=== PATIENT | female | born 1975 | race Caucasian/White ===

== ENCOUNTER 2019-06-06 00:53 | Inpatient (IN) ==
--- NOTE | 2019-06-06 01:02 | Emergency Department Note ---
Disposition Clinical Impression: Bipolar disorder Qualifiers: Active/Remission status: currently active Current bipolar episode type: mixed Current episode severity: unspecified Qualified Code(s): F31.60 - Bipolar disorder, current episode mixed, unspecified Disposition: Admitted As Inpatient Forms: ED Satisfaction Letter Time of Disposition: 03:36 General Adult HPI - General Chief complaint: ED Psychiatric Symptoms Stated complaint: SI/HI Time Seen by Provider: 06/06/19 01:00 Source: patient Mode of arrival: EMS Limitations: no limitations Nursing Notes Reviewed: Yes Vital Signs Reviewed: Yes - History of Present Illness HPI Narrative: Patient is a 44-year-old female with a past medical history including PTSD, bipolar disorder, Ba[place], presenting with chief complaint of manic episode. Patient states she has not been on any medications since October. Her last meth use was April 21 and since then, she has been in a jail for rehabilitation for drug use. The patient states in last 2-3 days, she feels like her bipolar disorder is acting up. She also states she has been having dreams of her roommate being killed in her PTSD is also acting up. She feels more depressed than usual and feels like she is in a manic stage. She had just returned from urgent care during the day and made a statement that she was going to get a knife and was being aggressive and making aggressive thoughts towards the other residents as they were fighting. The staff at the jail did not feel safe with the patient. The patient would like a psychiatric evaluation and would like to be restarted on medications for her bipolar disorder. The patient denies any visual or auditory hallucinations, recent drug use or alcohol use, denies suicidal or homicidal ideation at this time. The patient was evaluated at [facility] [place] and was medically cleared and transferred here for psychiatric evaluation. - Related Data Home Medications Medication Instructions Recorded Confirmed Docusate [Colace] 100 mg PO BID 06/05/19 06/05/19 Omeprazole [PriLOSEC] 40 mg PO DAILY 06/05/19 06/05/19 Ranitidine HCl [Heartburn Relief] 150 mg PO BID 06/05/19 06/05/19 Sucralfate [Carafate] 1 gm PO QIDAC 06/05/19 06/05/19 metroNIDAZOLE [Flagyl] 500 mg PO BID 06/05/19 06/05/19 Previous Rx's Medication Instructions Recorded Metformin [Glucophage] 1,000 mg PO BIDWM #60 tablet 06/27/15 Trazodone HCl [TraZODone] 100 mg PO HS PRN #60 tablet 12/11/15 Allergies Allergy/AdvReac Type Severity Reaction Status Date / Time No Known Allergies Allergy Verified 06/05/19 19:38 All systems ED: reviewed and negative except as stated. Review of Systems: As Per HPI Constitutional: Denies: fever, chills Eyes: Denies: vision change Cardiovascular: Denies: chest pain, palpitations Respiratory: Denies: cough, dyspnea Gastrointestinal: Denies: abdominal pain, vomiting, diarrhea Neurological: Denies: headache, weakness Psychiatric: Reports: homicidal thoughts. Denies: auditory hallucinations, visual hallucinations Past Medical History - Past Medical History Attestation: Yes The following information was validated with the patient. 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 - Social History Smoking Status: Current every day smoker Smokeless Tobacco Status: No Alcohol use: Reports: occasionally Drug use: Reports: methamphetamine Physical Exam - General Limitations: no limitations General appearance: alert, in no apparent distress - Head Head exam: atraumatic, normocephalic - Eye Eye exam: Present: normal appearance, EOMI - ENT ENT exam: normal exam, mucous membranes moist - Neck Neck exam: Present: normal inspection, trachea midline - Chest Chest inspection: Present: normal inspection, symmetric chest wall rise - Respiratory Respiratory exam: Present: normal lung sounds bilaterally. Absent: respiratory distress, wheezes - Cardiovascular Cardiovascular exam: Present: regular rate, normal rhythm, normal heart sounds - Abdominal Exam Abdominal exam: Present: soft, Non-Tender. Absent: distention - Extremities Exam Extremities exam: Present: normal capillary refill. Absent: pedal edema, calf tenderness - Neurological Exam Neurological exam: Present: alert, oriented X3 - Psychiatric Psychiatric exam: Present: normal affect, normal mood - Skin Skin exam: Present: warm, dry. Absent: diaphoresis, pallor Course Vital Signs Temperature 97.8 F 06/06/19 01:02 Pulse Rate 90 06/06/19 01:02 Respiratory Rate 18 06/06/19 01:02 Blood Pressure 118/80 09/12/19 01:02 O2 Sat by Pulse Oximetry 99 06/06/19 01:02 Temperature 97.8 F 06/06/19 01:02 Pulse Rate 90 06/06/19 01:02 Respiratory Rate 18 06/06/19 01:02 Blood Pressure 118/80 06/06/19 01:02 O2 Sat by Pulse Oximetry 99 06/06/19 01:02 Oxygen Delivery Oxygen Delivery Room Air Medical Decision Making - MDM Narrative Medical decision making narrative: Patient has history of bipolar disorder and has not been on any medications since October. She also has history of meth use and is currently in a jail for rehabilitation. Last use was April 21. Patient states she feels like she is more depressed and is in a manic episode. She would like a psychiatric evaluation and be restarted on medications. Patient had made aggressive thoughts and threatening to take a knife out towards other residents and staff at the jail as well. Patient was evaluated at [facility] [place]. Labs were reviewed. Patient was medically cleared and pink slip was signed and the patient was transferred here for psychiatric evaluation. 1A/psychiatry was called for evaluation. 03:30 Psychiatry evaluated the patient. Since the patient states that she was at urgent care earlier in the day and diagnosed with strep but not started on antibiotics, they are asking for a rapid strep test to be performed prior to the patient going to . She will be admitted for further management to psychiatry. - Medical Records Medical records reviewed: Yes I reviewed the patient's medical records. - Lab Data Lab results reviewed: Yes I reviewed the patient's lab results.
[2019-06-06] MEDS ORDERED: *HR* LORazepam 1 MG TABLET PO ONE (03:01)
[2019-06-06] MEDS ORDERED: Acetaminophen 325 MG TABLET PO PRN (03:52)
[2019-06-06] MEDS ORDERED: Haloperidol Lactate 5 MG/ML VIAL IM PRN (03:52)
[2019-06-06] MEDS ORDERED: Mag Hydrox/Al Hydrox/Simeth 30 ML UDC PO PRN (03:52)
[2019-06-06] MEDS ORDERED: MOM Conc 10 ML UD.LIQ PO PRN (03:52)
[2019-06-06] MEDS ORDERED: *HR* LORazepam 2 MG/ML VIAL IM PRN (03:52)
[2019-06-06] MEDS ORDERED: hydrOXYzine pamoate 25 MG CAPSULE PO PRN (03:52)
[2019-06-06] MEDS ORDERED: *HR* LORazepam 1 MG TABLET PO PRN (03:52)
[2019-06-06] MEDS ORDERED: traZODone 50 MG TABLET PO PRN (03:52)
--- NOTE | 2019-06-06 03:58 | Emergency Department Note ---
Disposition Clinical Impression: Bipolar disorder Qualifiers: Active/Remission status: currently active Current bipolar episode type: mixed Current episode severity: unspecified Qualified Code(s): F31.60 - Bipolar disorder, current episode mixed, unspecified Disposition: Admitted As Inpatient Time of Disposition: 03:36 General Adult HPI - General Chief complaint: ED Psychiatric Symptoms Stated complaint: SI/HI Time Seen by Provider: 06/06/19 01:00 Source: patient Mode of arrival: EMS Limitations: no limitations Nursing Notes Reviewed: Yes Vital Signs Reviewed: Yes - History of Present Illness Pain Scale: 0 - Related Data Home Medications Medication Instructions Recorded Confirmed Docusate [Colace] 100 mg PO BID 06/05/19 06/05/19 Omeprazole [PriLOSEC] 40 mg PO DAILY 06/05/19 06/05/19 Ranitidine HCl [Heartburn Relief] 150 mg PO BID 06/05/19 06/05/19 Sucralfate [Carafate] 1 gm PO QIDAC 06/05/19 06/05/19 metroNIDAZOLE [Flagyl] 500 mg PO BID 06/05/19 06/05/19 Previous Rx's Medication Instructions Recorded Metformin [Glucophage] 1,000 mg PO BIDWM #60 tablet 06/27/15 Trazodone HCl [TraZODone] 100 mg PO HS PRN #60 tablet 12/11/15 Allergies Allergy/AdvReac Type Severity Reaction Status Date / Time No Known Allergies Allergy Verified 06/05/19 19:38 Constitutional: Denies: fever, chills Eyes: Denies: vision change Cardiovascular: Denies: chest pain, palpitations Respiratory: Denies: cough, dyspnea Gastrointestinal: Denies: abdominal pain, vomiting, diarrhea Neurological: Denies: headache, weakness Psychiatric: Reports: homicidal thoughts. 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 - Social History Smoking Status: Current every day smoker Smokeless Tobacco Status: No Alcohol use: Reports: occasionally Drug use: Reports: methamphetamine Physical Exam - General Limitations: no limitations General appearance: alert, in no apparent distress Course Vital Signs Temperature 97.8 F 06/06/19 01:02 Pulse Rate 90 06/06/19 01:02 Respiratory Rate 18 06/06/19 01:02 Blood Pressure 118/80 06/06/19 01:02 O2 Sat by Pulse Oximetry 99 06/06/19 01:02 Temperature 97.8 F 06/06/19 01:02 Pulse Rate 90 06/06/19 01:02 Respiratory Rate 18 06/06/19 01:02 Blood Pressure 118/80 06/06/19 01:02 O2 Sat by Pulse Oximetry 99 06/06/19 01:02 Oxygen Delivery Oxygen Delivery Room Air Medical Decision Making - Medical Records Medical records reviewed: Yes I reviewed the patient's medical records. - Lab Data Lab results reviewed: Yes I reviewed the patient's lab results. Lab Results 06/06/19 Range/Units 02:56 POC Glucose 126 H (70-99) mg/dL Attestation Statement - Attestation Attestation: I, Mario Godoy MD, personally evaluated this patient and discussed their management with the resident physician. I reviewed the resident's note and agree with the documented findings, medical decision making, and plan of care. 44-year-old female who is transferred here from [facility] emergency department for psychiatric consultation. Please refer to the note from [facility] emergency department visit johanny for complete details of the history and physical examination. Patient is apparently in a alf for drug rehabilitation and earlier today made some threatening statements about wrapping a knife with duct tape which could did not be used to stab someone. Patient denies any suicidal ideation at present. On the side of ideation at present but does admit to making statements earlier. She has a history of bipolar disorder and has been off her medications for some time. On examination patient is a well-developed well-nourished female in no acute distress. She is alert and oriented 3. There is no cyanosis or diaphoresis. Breath sounds are clear and equal bilaterally. Heart regular rate and rhythm. Abdomen soft and nontender with normal bowel sounds. No gross focal neurological deficits. Labs reviewed from the outside facility and patient medically cleared for psyc hiatric evaluation. [address] psychiatry department was consulted to evaluate patient in the emergency department. After evaluation patient is being admitted to the [address] psychiatric unit.
[2019-06-06] MEDS: Nicotine 7 MG PATCH.TD24 TD SCH (09:42)
[2019-06-06] MEDS ORDERED: Dextrose Gel 15 GM/37.5 ML TUBE PO PRN ×4 (11:16→23:08)
[2019-06-06] MEDS ORDERED: *HR* Dextrose 50 % in Water (Syg) 50 ML SYRINGE IVP PRN ×2 (11:16→23:08)
[2019-06-06] MEDS ORDERED: D5% in Water 1,000 ML IVC PRN ×2 (11:16→23:08)
--- NOTE | 2019-06-06 11:21 | Psychiatry History & Physical ---
Date of Encounter: 06/06/19 Time of Encounter: 09:30 History of Present Illness Patient Stated Chief Complaint: I recommend I Medicare Admission Attestation: For traditional Medicare patients the provided hospital inpatient services are reasonable and necessary and in the case of services not specified as inpatient-only under 42 CFR 419.22 (n), that they are appropriately provided as inpatient services in accordance 42 CFR 412.3. For Critical Access Hospital the patient may reasonably be expected to be discharged or transferred to a hospital within 96 hours after admission to the Critical Access Hospital. Admitted From: Emergency Dept Plans for Post Hospital Care: Transfer Inp Rehab Fac History of Present Illness: Patient is a 44-year-old female with a past medical history including PTSD, bipolar disorder, [place], presenting with chief complaint of manic episode. Patient states she has not been on any medications since October. Her last meth use was April 21 and since then, she has been in a senior care for rehabilitation for drug use. The patient states in last 2-3 days, she feels like her bipolar disorder is acting up. She also states she has been having dreams of her roommate being killed in her PTSD is also acting up. She feels more depressed than usual and feels like she is in a manic stage. She had just returned from urgent care during the day and made a statement that she was going to get a knife and was being aggressive and making aggressive thoughts towards the other residents as they were fighting. The staff at the senior care did not feel safe with the patient. The patient would like a psychiatric evaluation and would like to be restarted on medications for her bipolar disorder. The patient denies any visual or auditory hallucinations, recent drug use or alcohol use, denies suicidal or homicidal ideation at this time. The patient was evaluated at [facility] and was medically cleared and transferred here for psychiatric evaluation. This morning she continues to have mood lability. She is hyperverbal and expansive. She is impulsive pulses. She reports that she has been feeling manic since she has stopped her psychiatric medications. She reports that she has some paranoia and feels her roommate may kill her and that she needs to protect herself. She denies suicidal ideations. She does have some vague auditory hallucinations telling her to hurt people. She also has nightmares related to her PTSD. Past Med Surg Social Fam HX - Past Medical History Medical history: cancer, COPD, diabetes, GERD, other - Past Psychiatric History Psychiatric history: Reports: bipolar, prior suicide attempt, previous psyc hiatric hospitalization Past psychiatric history details: She reports that she has been in [place] twice most recently in November 2015. She is been linked with [facility] [place]. She was saying Risperdal 1 at bedtime Remeron 15 at bedtime prazosin 1 at bedtime most recently. She has also tried in [place] in the past. She reports a history of suicide attempt by overdose. Family psychiatric history: No Family History of Suicide: None - Past Surgical History Surgical History: cancer surgery, herniorrhaphy, hysterectomy, other - Social History Smoking Status: Current every day smoker Smokeless Tobacco Status: No Alcohol use: occasionally Drug use: methamphetamine Current living situation: Other Activity Level: Independent ambulation Recent Out of Country Travel Within the Last 8 Weeks: No Exposure or Possible Exposure to Illness During Travel: No Additional social history: She is currently staying at the [facility] for substance use. - Family History Father Adopted: No Family Member Ethnicity: Unknown Living Status: Mother Adopted: No Family Member Ethnicity: Unknown Living Status: Brother Living Status: Still Living Hx Family Endocrine Disorder: Yes (DM) Medications & Allergies Azithromycin 250 mg PO AD 06/06/19 [History] Docusate Sodium [Stool Softener] 100 mg PO BID 06/06/19 [History] Lactulose [Enulose] 15 ml PO BID 06/06/19 [History] MethylPREDNISolone [MethylPREDNISolone Dose Pack] 4 mg PO AD 06/06/19 [History] Omeprazole [PriLOSEC] 40 mg PO DAILY 06/06/19 [History] Sucralfate [Carafate] 1 gm PO QID 06/06/19 [History] metFORMIN [Glucophage] 500 mg PO BIDWM 06/06/19 [History] metroNIDAZOLE [Metronidazole] 500 mg PO BID 06/06/19 [History] raNITIdine HCl [Zantac] 150 mg PO BID 06/06/19 [History] traZODone [TraZODone] 100 mg PO HS 06/06/19 [History] Allergy/AdvReac Type Severity Reaction Status Date / Time No Known Allergies Allergy Verified 06/05/19 19:38 Review of Systems Constitutional: Reports: weakness Eyes: Denies: eye pain Ears, Nose, Throat: Denies: ear pain Cardiovascular: Denies: chest pain Respiratory: Denies: cough Gastrointestinal: Denies: abdominal pain Genitourinary female: Reports: dysuria, discharge Musculoskeletal: Reports: joint swelling, joint pain Integumentary: Denies: rash Neurological: Reports: weakness Psychiatric: Reports: anxiety, homicidal ideation, auditory hallucinations, hopelessness, irritability, mood swings Endocrine: Reports: fatigue Hematologic/Lymphatic: Denies: easy bleeding Allergic/Immunologic: Denies: facial swelling Exam - HEENT Head exam IM: Present: atraumatic Eye exam IM: Present: EOMI ENT exam IM: Present: mucous membranes moist - Neurological Neurological exam: Present: CN II-XII intact (Grossly) - Respiratory Respiratory exam IM: Absent: respiratory distress - GI/Abdominal GI/Abdominal exam IM: Present: no peritoneal signs - Extremities Extremities exam IM: Present: full ROM - Skin Skin exam IM: Absent: abrasion - Constitutional Vitals: Temp Pulse Resp BP Pulse Ox 97.2 F L 96 18 110/66 98 06/06/19 04:15 06/06/19 04:15 06/06/19 04:15 06/06/19 04:06/06/19 04:15 General appearance: age & developmentally appropriate - Musculoskeletal Gait: normal Station: stooped Strength & Tone: mild weakness - Psychiatric Patient Orientation: Yes Person, Yes Time, Yes Place, Yes Circumstance Level of alertness: Alert Behavior: impulsive, talkative, dramatic Psychomotor activity: Increased Eye Contact: Maintains Eye Contact Mood Description: Labile, Irritable Patient description of mood: Terrible Affect description: labile Speech Volume: Loud Speech pattern: excessive Language & Vocabulary: consistent with education Thought Process: Tangential Thought Content: No Suicidal ideation, Yes Homicidal ideation, Yes Paranoid delusion Perceptual Disturbances: Yes Auditory hallucinations Attention Span Ability: Capable of Focused Attention Memory Description: Grossly Intact Patient Reliability: Reliable Historian Fund of knowledge: Yes abstraction ability, Yes average, Yes aware of current events Intelligence Estimate: Average Judgment: Poor Insight: None Results - Labs Labs: Laboratory Last Values POC Glucose 126 mg/dL (70-99) H 06/06/19 02:56 Assessment and Plan (1) Bipolar disorder Current visit: Yes Status: Acute Plan: Admit inpatient for safety and stabilization, Close observation, Suicide Precautions per unit protocol, Encourage participation in unit milieu, Group Therapy, Monitor sleep, Monitor appetite Additional Plan: Restart Remeron 7.5 at bedtime prazosin 1 at bedtime Risperdal 1 at bedtime encourage group attendance [place] equals 0 Risks, benefits, side effects, alternatives discussed w/pt: Yes Patient agreeable to treatment: Yes Plans for Post Hospital Care: Transfer Inp Rehab Fac Estimated Length of Stay (Days): 3 Qualifiers: Active/Remission status: currently active Current bipolar episode type: mixed Current episode severity: severe Psychotic features: with psychotic features Qualified Code(s): F31.64 - Bipolar disorder, current episode mixed, severe, with psychotic features
[2019-06-06 13:00] LABS: Chol/HDL Ratio 2.7 (0-4.9)
[2019-06-06] MEDS: Azithromycin 250 MG TABLET PO SCH (13:00)
[2019-06-06] MEDS: metroNIDAZOLE 500 MG TABLET PO SCH ×2 (13:00→20:55)
[2019-06-06] MEDS: Sucralfate 1 GM TABLET PO SCH ×3 (13:00→20:56)
[2019-06-06] MEDS: Insulin LISPRO 300 UNITS/3 ML VIAL SQ SCH ×2 (13:11→18:04)
[2019-06-06] MEDS: Lactulose Oral Soln 20 GM/30 ML UDC PO SCH ×2 (13:53→20:57)
[2019-06-06] MEDS: methylPREDNISolone 4 MG TABLET PO SCH ×3 (13:53→21:13)
[2019-06-06 14:24] LABS: Estimated Average Glucose 157 mg/dl
[2019-06-06] MEDS: *HR* Metformin 500 MG TABLET PO SCH (16:58)
[2019-06-06] MEDS: Mirtazapine 15 MG TABLET PO SCH (20:56)
[2019-06-06] MEDS: traZODone 50 MG TABLET PO SCH (20:57)
[2019-06-06] MEDS ORDERED: risperiDONE 1 MG TABLET PO SCH (21:00)
[2019-06-07] MEDS: Insulin LISPRO 300 UNITS/3 ML VIAL SQ SCH ×5 (00:20→21:00)
[2019-06-07] MEDS: Famotidine 20 MG TABLET PO SCH (09:12)
[2019-06-07] MEDS: *HR* Metformin 500 MG TABLET PO SCH ×2 (09:12→16:49)
[2019-06-07] MEDS: metroNIDAZOLE 500 MG TABLET PO SCH ×2 (09:12→20:58)
[2019-06-07] MEDS: Nicotine 7 MG PATCH.TD24 TD SCH (09:13)
[2019-06-07] MEDS: Lactulose Oral Soln 20 GM/30 ML UDC PO SCH ×2 (09:13→20:58)
[2019-06-07] MEDS: Sucralfate 1 GM TABLET PO SCH ×4 (09:13→20:58)
[2019-06-07] MEDS: methylPREDNISolone 4 MG TABLET PO SCH ×4 (09:44→21:58)
--- NOTE | 2019-06-07 11:03 | Psychiatry Progress Note ---
Date of Encounter: 06/07/19 Time of Encounter: 10:55 Subjective Interval history: Patient continues to report depression with sad mood decreased interest and hopelessness. She still has some auditory hallucinations telling her to hurt people. She is tolerating being back on the medications but feels that the Invega was not as helpful Seroquel has been for her in the past. She still woke up several times as well as night. She has not been eating and has been secluded to her room. She appears somewhat paranoid. Review of Systems Psychiatric: Reports: anxiety, homicidal ideation, auditory hallucinations, hopelessness, irritability, mood swings Results - Vital Signs Vital Signs: Temp Pulse Resp BP Pulse Ox 97.6 F 94 16 103/69 97 06/07/19 09:00 06/07/19 09:00 06/07/19 09:00 06/07/19 09:00 06/07/19 09:00 - Labs Labs: Laboratory Results - last 24 hr 06/06/19 06/06/19 06/06/19 11:14 11:14 11:15 POC Glucose Est Mean Plasma Glucose 157 Hemoglobin A1c 7.1 H AST ALT Ammonia Triglycerides Cholesterol LDL Cholesterol, Calc VLDL Cholesterol, Calc HDL Cholesterol Cholesterol/HDL Ratio TSH 1.428 T.pallidum Ab Interpret POSITIVE A 06/06/19 06/06/19 06/06/19 11:15 12:19 12:27 POC Glucose 334 H Est Mean Plasma Glucose Hemoglobin A1c AST 44 H ALT 70 H Ammonia 38 Triglycerides 83 Cholesterol 135 LDL Cholesterol, Calc 68 VLDL Cholesterol, Calc 17 HDL Cholesterol 50 Cholesterol/HDL Ratio 2.7 TSH T.pallidum Ab Interpret 06/06/19 06/06/19 06/07/19 15:07 19:55 00:10 POC Glucose 78 365 H 431 H* Est Mean Plasma Glucose Hemoglobin A1c AST ALT Ammonia Triglycerides Cholesterol LDL Cholesterol, Calc VLDL Cholesterol, Calc HDL Cholesterol Cholesterol/HDL Ratio TSH T.pallidum Ab Interpret 06/07/19 06/07/19 00:11 08:11 POC Glucose 452 H* 311 H Est Mean Plasma Glucose Hemoglobin A1c AST ALT Ammonia Triglycerides Cholesterol LDL Cholesterol, Calc VLDL Cholesterol, Calc HDL Cholesterol Cholesterol/HDL Ratio TSH T.pallidum Ab Interpret Assessment and Plan (1) Bipolar disorder Current visit: Yes Status: Acute Plan: Continue hospitalization, Close observation, Suicide Precautions per unit protocol, Encourage participation in unit milieu, Group Therapy, Monitor sleep, Monitor appetite Additional Plan: Switch in [place] for Seroquel 200 mg by mouth daily at bedtime. Continue prazosin and Remeron. Encourage group attendance. She will go back to [facility] once she is stable. Risks, benefits, side effects, alternatives discussed w/pt: Yes Patient agreeable to treatment: Yes Qualifiers: Active/Remission status: currently active Current bipolar episode type: mixed Current episode severity: severe Psychotic features: with psychotic features Qualified Code(s): F31.64 - Bipolar disorder, current episode mixed, severe, with psychotic features Consult Discharge Plan - Plan Referrals: [facility] [Other] (Upon discharge from the hospital you will be returning to [facility] for continued treatment. While there, you will be seen daily by [facility] counselors and case coordinator, both individually and in group. Please work with [facility] staff to develop a treatment plan based on your individual needs and goals. ) Psychiatry Exam - Constitutional Vitals: Temp Pulse Resp BP Pulse Ox 97.6 F 94 16 103/69 97 06/07/19 09:00 06/07/19 09:00 06/07/19 09:00 06/07/19 09:00 06/07/19 09:00 General appearance: age & developmentally appropriate, disheveled - Musculoskeletal Gait: slow Station: stooped Strength & Tone: mild weakness - Psychiatric Patient Orientation: Yes Person, Yes Time, Yes Place, Yes Circumstance Level of alertness: Alert Behavior: hostile Psychomotor activity: Agitated Eye Contact: Minimal Contact Mood Description: Angry, Irritable Patient description of mood: Mad Affect description: congruent with mood Speech Volume: Loud Speech pattern: normal rate, normal rhythm, normal tone, fluent, spontaneous Language & Vocabulary: consistent with education Thought Process: Perseveration Thought Content: Yes Homicidal ideation, Yes Paranoid delusion Perceptual Disturbances: Yes Auditory hallucinations Attention Span Ability: Capable of Focused Attention Memory Description: Grossly Intact Patient Reliability: Reliable Historian Fund of knowledge: Yes abstraction ability, Yes aware of current events Intelligence Estimate: Average Judgment: Poor Insight: None
[2019-06-07] MEDS: Azithromycin 250 MG TABLET PO SCH (11:10)
[2019-06-07] MEDS: Mirtazapine 15 MG TABLET PO SCH (20:58)
[2019-06-07] MEDS: traZODone 50 MG TABLET PO SCH (20:59)
--- NOTE | 2019-06-08 09:36 | Psychiatry Progress Note ---
Date of Encounter: 06/08/19 Time of Encounter: 08:50 Subjective Interval history: Patient is doing well. She slept better with the Seroquel. No suicidal or homicidal thoughts, ideations, or plans. She continues to have some mild paranoia and worries that people are talking about her wanting to hurt her. She is withdrawn and does not spend much time out of her room. Review of Systems Psychiatric: Reports: anxiety, hopelessness, irritability, mood swings, other (Paranoia) Results - Vital Signs Vital Signs: Temp Pulse Resp BP Pulse Ox 97.7 F 111 14 91/59 98 06/08/19 09:00 06/08/19 09:00 06/08/19 09:00 06/08/19 09:00 06/08/19 09:00 - Labs Labs: Laboratory Results - last 24 hr 06/07/19 06/07/19 06/07/19 11:12 11:13 14:31 POC Glucose 423 H* 407 H* 190 H 06/07/19 06/07/19 06/08/19 16:17 20:57 09:05 POC Glucose 247 H 376 H 338 H Assessment and Plan (1) Bipolar disorder Current visit: Yes Status: Acute Plan: Continue hospitalization, Close observation, Suicide Precautions per unit protocol, Encourage participation in unit milieu, Group Therapy, Monitor sleep, Monitor appetite Additional Plan: Continue current medication. Encourage group therapy. Will likely return to [facility] on Monday. Risks, benefits, side effects, alternatives discussed w/pt: Yes Patient agreeable to treatment: Yes Qualifiers: Active/Remission status: currently active Current bipolar episode type: mixed Current episode severity: severe Psychotic features: with psychotic features Qualified Code(s): F31.64 - Bipolar disorder, current episode mixed, severe, with psychotic features Consult Discharge Plan - Plan Referrals: [facility] [Other] (Upon discharge from the hospital you will be returning to [facility] for continued treatment. While there, you will be seen daily by [facility] counselors and rifle case repairer, both individually and in group. Please work with [facility] staff to develop a treatment plan based on your individual needs and goals. ) Psychiatry Exam - Constitutional Vitals: Temp Pulse Resp BP Pulse Ox 97.7 F 111 14 91/59 98 06/08/19 09:00 06/08/19 09:00 06/08/19 09:00 06/08/19 09:00 06/08/19 09:00 General appearance: age & developmentally appropriate - Musculoskeletal Gait: slow Station: stooped Strength & Tone: mild weakness - Psychiatric Patient Orientation: Yes Person, Yes Time, Yes Place, Yes Circumstance Level of alertness: Alert Behavior: anxious Psychomotor activity: Slowed Eye Contact: Minimal Contact Mood Description: Anxious Patient description of mood: A little better Affect description: anxious Speech Volume: Normal Speech pattern: normal rate Language & Vocabulary: consistent with education Thought Process: Linear, Goal Oriented Thought Content: Yes Intact, No Suicidal ideation, No Homicidal ideation, Yes Paranoid delusion Perceptual Disturbances: No Auditory hallucinations, No Visual hallucinations Attention Span Ability: Capable of Focused Attention Memory Description: Grossly Intact Patient Reliability: Reliable Historian Fund of knowledge: Yes abstraction ability, Yes aware of current events Intelligence Estimate: Average Judgment: Fair Insight: Partial
[2019-06-08] MEDS: Nicotine 7 MG PATCH.TD24 TD SCH (09:45)
[2019-06-08] MEDS: Sucralfate 1 GM TABLET PO SCH ×4 (09:46→20:56)
[2019-06-08] MEDS: methylPREDNISolone 4 MG TABLET PO SCH ×3 (09:46→22:26)
[2019-06-08] MEDS: Famotidine 20 MG TABLET PO SCH (09:46)
[2019-06-08] MEDS: *HR* Metformin 500 MG TABLET PO SCH ×2 (09:46→17:51)
[2019-06-08] MEDS: metroNIDAZOLE 500 MG TABLET PO SCH ×2 (09:47→20:55)
[2019-06-08] MEDS: Insulin LISPRO 300 UNITS/3 ML VIAL SQ SCH ×4 (09:48→22:23)
[2019-06-08] MEDS: Lactulose Oral Soln 20 GM/30 ML UDC PO SCH ×2 (09:50→20:56)
[2019-06-08 10:43] LABS: RPR REACTIVE (Non Reactive)
[2019-06-08] MEDS: Azithromycin 250 MG TABLET PO SCH (12:30)
[2019-06-08] MEDS: traZODone 50 MG TABLET PO SCH (20:55)
[2019-06-08] MEDS: Mirtazapine 15 MG TABLET PO SCH (20:56)
[2019-06-09] MEDS: Famotidine 20 MG TABLET PO SCH (08:54)
[2019-06-09] MEDS: Nicotine 7 MG PATCH.TD24 TD SCH (08:54)
[2019-06-09] MEDS: *HR* Metformin 500 MG TABLET PO SCH ×2 (08:54→16:15)
[2019-06-09] MEDS: metroNIDAZOLE 500 MG TABLET PO SCH ×2 (08:54→21:01)
[2019-06-09] MEDS: Sucralfate 1 GM TABLET PO SCH ×4 (08:54→21:00)
[2019-06-09] MEDS: Insulin LISPRO 300 UNITS/3 ML VIAL SQ SCH ×4 (08:55→21:03)
[2019-06-09] MEDS: Lactulose Oral Soln 20 GM/30 ML UDC PO SCH ×2 (08:59→21:02)
[2019-06-09] MEDS: methylPREDNISolone 4 MG TABLET PO SCH (08:59)
--- NOTE | 2019-06-09 09:32 | Psychiatry Progress Note ---
Date of Encounter: 06/09/19 Time of Encounter: 08:50 Subjective Interval history: Patient denies any suicidal or homicidal thoughts, ideations, or plans. She does report that she still has some mild paranoia and a little bit of difficulty sleeping. She was agreeable to increasing her Seroquel. She spends most of the time in her room but does attend the occasional group and comes out for meals. She is hopeful and looking forward to getting back to [facility]. Review of Systems Psychiatric: Reports: other (Paranoia) Results - Vital Signs Vital Signs: Temp Pulse Resp BP Pulse Ox 97.4 F L 91 14 100/67 98 06/09/19 09:00 06/09/19 09:00 06/09/19 09:00 06/09/19 09:00 06/09/19 09:00 - Labs Labs: Laboratory Results - last 24 hr 06/06/19 06/08/19 06/08/19 11:14 12:11 16:49 POC Glucose 235 H 335 H RPR Titer 1:2 A RPR REACTIVE A 06/08/19 06/09/19 20:37 08:41 POC Glucose 237 H 201 H RPR Titer RPR Assessment and Plan (1) Bipolar disorder Current visit: Yes Status: Acute Plan: Continue hospitalization, Close observation, Suicide Precautions per unit protocol, Encourage participation in unit milieu, Group Therapy, Monitor sleep, Monitor appetite Additional Plan: Increase Seroquel to 300 mg by mouth daily at bedtime for paranoia and to further address insomnia. Encourage group attendance. Lately little and off tomorrow. Risks, benefits, side effects, alternatives discussed w/pt: Yes Patient agreeable to treatment: Yes Qualifiers: Active/Remission status: currently active Current bipolar episode type: mixed Current episode severity: severe Psychotic features: with psychotic features Qualified Code(s): F31.64 - Bipolar disorder, current episode mixed, severe, with psychotic features Consult Discharge Plan - Plan Referrals: [facility] [Other] (Upon discharge from the hospital you will be returning to [facility] for continued treatment. While there, you will be seen daily by [facility] counselors and manager rn case, both individually and in group. Please work with [facility] staff to develop a treatment plan based on your individual needs and goals. ) Psychiatry Exam - Constitutional Vitals: Temp Pulse Resp BP Pulse Ox 97.4 F L 91 14 100/67 98 06/09/19 09:00 06/09/19 09:00 06/09/19 09:00 06/09/19 09:00 06/09/19 09:00 General appearance: age & developmentally appropriate, well-groomed, well- nourished - Musculoskeletal Gait: normal Station: relaxed Strength & Tone: normal for patient - Psychiatric Patient Orientation: Yes Person, Yes Time, Yes Place, Yes Circumstance Level of alertness: Alert Behavior: calm, cooperative Psychomotor activity: Normal Eye Contact: Maintains Eye Contact Mood Description: Euthymic/stable Patient description of mood: Better Affect description: congruent with mood, full range Speech Volume: Normal Speech pattern: normal rate, normal rhythm, normal tone, fluent, spontaneous Language & Vocabulary: consistent with education Thought Process: Linear, Goal Oriented Thought Content: No Suicidal ideation, No Homicidal ideation, No Overt delusions, Yes Paranoid delusion Perceptual Disturbances: No Auditory hallucinations, No Visual hallucinations Attention Span Ability: Capable of Focused Attention Memory Description: Grossly Intact Patient Reliability: Reliable Historian Fund of knowledge: Yes abstraction ability, Yes aware of current events Intelligence Estimate: Average Judgment: Fair Insight: Partial
[2019-06-09] MEDS: Azithromycin 250 MG TABLET PO SCH (11:41)
[2019-06-09] MEDS: Mirtazapine 15 MG TABLET PO SCH (21:01)
[2019-06-10] MEDS: methylPREDNISolone 4 MG TABLET PO SCH ×2 (05:33→07:08)
[2019-06-10] MEDS: Lactulose Oral Soln 20 GM/30 ML UDC PO SCH (08:13)
[2019-06-10] MEDS: Famotidine 20 MG TABLET PO SCH (08:14)
[2019-06-10] MEDS: Sucralfate 1 GM TABLET PO SCH (08:14)
[2019-06-10] MEDS: *HR* Metformin 500 MG TABLET PO SCH (08:15)
[2019-06-10] MEDS: metroNIDAZOLE 500 MG TABLET PO SCH (08:15)
[2019-06-10] MEDS: Insulin LISPRO 300 UNITS/3 ML VIAL SQ SCH (08:19)
[2019-06-10] MEDS: Nicotine 7 MG PATCH.TD24 TD SCH (08:22)
--- NOTE | 2019-06-10 09:50 | Discharge Summary ---
Date of Encounter: 06/10/19 Time of Encounter: 08:00 Diagnosis - Discharge Diagnosis (1) Bipolar disorder Status: Acute Qualifiers: Active/Remission status: currently active Current bipolar episode type: mixed Current episode severity: severe Psychotic features: with psychotic features Qualified Code(s): F31.64 - Bipolar disorder, current episode mixed, severe, with psychotic features Medications - Discharge Medications Prescriptions: Sucralfate [Carafate] 1 gm PO QID 15 Days tab Prescription Printed Lactulose [Enulose] 15 ml PO BID 15 Days Prescription Printed metFORMIN [Glucophage] 500 mg PO BIDWM #30 tab Transmission Status: Pending to [facility] Insulin LISPRO [HumaLOG] 0 units SQ HS 15 Days vial Prescription Printed Insulin LISPRO [HumaLOG] 0 units SQ TIDAC 15 Days vial Prescription Printed MethylPREDNISolone [MethylPREDNISolone Dose Pack] 4 mg PO AD #2 Prescription Printed Prazosin [Minipress] 1 mg PO HS #15 capsule Transmission Status: Pending to [facility] Omeprazole [PriLOSEC] 40 mg PO DAILY #15 Prescription Printed Mirtazapine [Remeron] 7.5 mg PO HS #15 tablet Transmission Status: Pending to [facility] Quetiapine Fumarate [Seroquel] 300 mg PO HS #15 tablet Transmission [facility]: [facility] Docusate Sodium [Stool Softener] 100 mg PO BID #30 traZODone [TraZODone] 100 mg PO HS #15 tab Transmission Status: Pending to [facility] . hydrOXYzine pamoate [Vistaril] 25 mg PO TID PRN #45 capsule PRN Reason: Anxiety Transmission Status: Pending to [facility] raNITIdine HCl [Zantac] 150 mg PO BID #15 tab Transmission Status: Pending to [facility]. Docusate Sodium [Stool Softener] 100 mg PO BID #30 06/10/19 [Rx] Insulin LISPRO [HumaLOG] 0 units SQ HS 15 Days vial 06/10/19 [Rx] Insulin LISPRO [HumaLOG] 0 units SQ TIDAC 15 Days vial 06/10/19 [Rx] Lactulose [Enulose] 15 ml PO BID 15 Days 06/10/19 [Rx] MethylPREDNISolone [MethylPREDNISolone Dose Pack] 4 mg PO AD #2 06/10/19 [Rx] Mirtazapine [Remeron] 7.5 mg PO HS #15 tablet 06/10/19 [Rx] Omeprazole [PriLOSEC] 40 mg PO DAILY #15 06/10/19 [Rx] Prazosin [Minipress] 1 mg PO HS #15 capsule 06/10/19 [Rx] Quetiapine Fumarate [Seroquel] 300 mg PO HS #15 tablet 06/10/19 [Rx] Sucralfate [Carafate] 1 gm PO QID 15 Days tab 06/10/19 [Rx] hydrOXYzine pamoate [Vistaril] 25 mg PO TID PRN #45 capsule 06/10/19 [Rx] metFORMIN [Glucophage] 500 mg PO BIDWM #30 tab 06/10/19 [Rx] raNITIdine HCl [Zantac] 150 mg PO BID #15 tab 06/10/19 [Rx] traZODone [TraZODone] 100 mg PO HS #15 tab 06/10/19 [Rx] Allergy/AdvReac Type Severity Reaction Status Date / Time No Known Allergies Allergy Verified 06/05/19 19:38 Results Procedures and tests throughout hospitalization: Completed Lab Orders Category Date Time Status Alanine Aminotransferase Routine Lab 06/06/19 11:15 Completed Ammonia Routine Lab 06/06/19 12:27 Completed Aspartate Amino Transferase Routine Lab 06/06/19 11:15 Completed Hgb A1C Routine Lab 06/06/19 11:15 Completed Lipid Panel Routine Lab 06/06/19 11:15 Completed Thyroid Stimulating Hormone Routine Lab 06/06/19 11:14 Completed Treponema Pallidum Ab Routine Lab 06/06/19 11:14 Completed Completed Microbiology Orders Category Date Time Status Streptococcus A Rapid Test [RM] Stat Lab 06/06/19 03:35 Completed Labs from last 24 hours 06/10/19 06/09/19 06/09/19 08:13 20:34 16:13 POC Glucose 195 H 362 H 129 H 06/09/19 06/09/19 14:50 11:19 POC Glucose 105 H 374 H Lab Results 06/06/19 06/06/19 06/06/19 Range/Units 02:56 11:14 11:14 POC Glucose 126 H (70-99) mg/dL Est Mean Plasma Glucose mg/dl Hemoglobin A1c ( - 5.6) % AST (13-39) Units/L ALT (7-52) Units/L Ammonia (16-53) mcmol/L Triglycerides (< 150) mg/dL Cholesterol (< 200) mg/dL LDL Cholesterol, Calc (0-99) mg/dL VLDL Cholesterol, Calc (< 31) mg/dL HDL Cholesterol (40-59) mg/dL Cholesterol/HDL Ratio (0-4.9) TSH 1.428 (0.340-5.600) mcIU/mL RPR Titer RPR (Non Reactive) T.pallidum Ab Interpret POSITIVE A (NEGATIVE) 06/06/19 06/06/19 06/06/19 Range/Units 11:14 11:15 11:15 POC Glucose (70-99) mg/dL Est Mean Plasma Glucose 157 mg/dl Hemoglobin A1c 7.1 H ( - 5.6) % AST 44 H (13-39) Units/L ALT 70 H (7-52) Units/L Ammonia (16-53) mcmol/L Triglycerides 83 (< 150) mg/dL Cholesterol 135 (< 200) mg/dL LDL Cholesterol, Calc 68 (0-99) mg/dL VLDL Cholesterol, Calc 17 (< 31) mg/dL HDL Cholesterol 50 (40-59) mg/dL Cholesterol/HDL Ratio 2.7 (0-4.9) TSH (0.340-5.600) mcIU/mL RPR Titer 1:2 A RPR REACTIVE A (Non Reactive) T.pallidum Ab Interpret (NEGATIVE) 06/06/19 06/06/19 06/06/19 Range/Units 12:19 12:27 15:07 POC Glucose 334 H 78 (70-99) mg/dL Est Mean Plasma Glucose mg/dl Hemoglobin A1c ( - 5.6) % AST (13-39) Units/L ALT (7-52) Units/L Ammonia 38 (16-53) mcmol/L Triglycerides (< 150) mg/dL Cholesterol (< 200) mg/dL LDL Cholesterol, Calc (0-99) mg/dL VLDL Cholesterol, Calc (< 31) mg/dL HDL Cholesterol (40-59) mg/dL Cholesterol/HDL Ratio (0-4.9) TSH (0.340-5.600) mcIU/mL RPR Titer RPR (Non Reactive) T.pallidum Ab Interpret (NEGATIVE) 06/06/19 06/07/19 06/07/19 Range/Units 19:55 00:10 00:11 POC Glucose 365 H 431 H* 452 H* (70-99) mg/dL Est Mean Plasma Glucose mg/dl Hemoglobin A1c ( - 5.6) % AST (13-39) Units/L ALT (7-52) Units/L Ammonia (16-53) mcmol/L Triglycerides (< 150) mg/dL Cholesterol (< 200) mg/dL LDL Cholesterol, Calc (0-99) mg/dL VLDL Cholesterol, Calc (< 31) mg/dL HDL Cholesterol (40-59) mg/dL Cholesterol/HDL Ratio (0-4.9) TSH (0.340-5.600) mcIU/mL RPR Titer RPR (Non Reactive) T.pallidum Ab Interpret (NEGATIVE) 06/07/19 06/07/19 06/07/19 Range/Units 08:11 11:12 11:13 POC Glucose 311 H 423 H* 407 H* (70-99) mg/dL Est Mean Plasma Glucose mg/dl Hemoglobin A1c ( - 5.6) % AST (13-39) Units/L ALT (7-52) Units/L Ammonia (16-53) mcmol/L Triglycerides (< 150) mg/dL Cholesterol (< 200) mg/dL LDL Cholesterol, Calc (0-99) mg/dL VLDL Cholesterol, Calc (< 31) mg/dL HDL Cholesterol (40-59) mg/dL Cholesterol/HDL Ratio (0-4.9) TSH (0.340-5.600) mcIU/mL RPR Titer RPR (Non Reactive) T.pallidum Ab Interpret (NEGATIVE) 06/07/19 06/07/19 06/07/19 Range/Units 14:31 16:17 20:57 POC Glucose 190 H 247 H 376 H (70-99) mg/dL Est Mean Plasma Glucose mg/dl Hemoglobin A1c ( - 5.6) % AST (13-39) Units/L ALT (7-52) Units/L Ammonia (16-53) mcmol/L Triglycerides (< 150) mg/dL Cholesterol (< 200) mg/dL LDL Cholesterol, Calc (0-99) mg/dL VLDL Cholesterol, Calc (< 31) mg/dL HDL Cholesterol (40-59) mg/dL Cholesterol/HDL Ratio (0-4.9) TSH (0.340-5.600) mcIU/mL RPR Titer RPR (Non Reactive) T.pallidum Ab Interpret (NEGATIVE) 06/08/19 06/08/19 06/08/19 Range/Units 09:05 12:11 16:49 POC Glucose 338 H 235 H 335 H (70-99) mg/dL Est Mean Plasma Glucose mg/dl Hemoglobin A1c ( - 5.6) % AST (13-39) Units/L ALT (7-52) Units/L Ammonia (16-53) mcmol/L Triglycerides (< 150) mg/dL Cholesterol (< 200) mg/dL LDL Cholesterol, Calc (0-99) mg/dL VLDL Cholesterol, Calc (< 31) mg/dL HDL Cholesterol (40-59) mg/dL Cholesterol/HDL Ratio (0-4.9) TSH (0.340-5.600) mcIU/mL RPR Titer RPR (Non Reactive) T.pallidum Ab Interpret (NEGATIVE) 06/08/19 06/09/19 06/09/19 Range/Units 20:37 08:41 11:19 POC Glucose 237 H 201 H 374 H (70-99) mg/dL Est Mean Plasma Glucose mg/dl Hemoglobin A1c ( - 5.6) % AST (13-39) Units/L ALT (7-52) Units/L Ammonia (16-53) mcmol/L Triglycerides (< 150) mg/dL Cholesterol (< 200) mg/dL LDL Cholesterol, Calc (0-99) mg/dL VLDL Cholesterol, Calc (< 31) mg/dL HDL Cholesterol (40-59) mg/dL Cholesterol/HDL Ratio (0-4.9) TSH (0.340-5.600) mcIU/mL RPR Titer RPR (Non Reactive) T.pallidum Ab Interpret (NEGATIVE) 06/09/19 06/09/19 06/09/19 Range/Units 14:50 16:13 20:34 POC Glucose 105 H 129 H 362 H (70-99) mg/dL Est Mean Plasma Glucose mg/dl Hemoglobin A1c ( - 5.6) % AST (13-39) Units/L ALT (7-52) Units/L Ammonia (16-53) mcmol/L Triglycerides (< 150) mg/dL Cholesterol (< 200) mg/dL LDL Cholesterol, Calc (0-99) mg/dL VLDL Cholesterol, Calc (< 31) mg/dL HDL Cholesterol (40-59) mg/dL Cholesterol/HDL Ratio (0-4.9) TSH (0.340-5.600) mcIU/mL RPR Titer RPR (Non Reactive) T.pallidum Ab Interpret (NEGATIVE) 06/10/19 Range/Units 08:13 POC Glucose 195 H (70-99) mg/dL Est Mean Plasma Glucose mg/dl Hemoglobin A1c ( - 5.6) % AST (13-39) Units/L ALT (7-52) Units/L Ammonia (16-53) mcmol/L Triglycerides (< 150) mg/dL Cholesterol (< 200) mg/dL LDL Cholesterol, Calc (0-99) mg/dL VLDL Cholesterol, Calc (< 31) mg/dL HDL Cholesterol (40-59) mg/dL Cholesterol/HDL Ratio (0-4.9) TSH (0.340-5.600) mcIU/mL RPR Titer RPR (Non Reactive) T.pallidum Ab Interpret (NEGATIVE) Provider Date of admission: 06/06/19 03:49 Primary care physician: PCP NONE Consults: 06/06/19 04:59 Consult to Pastoral Services [CONS] Routine Comment: Discharging clinician: Luciana Holley Psychiatry Exam - Constitutional Vitals: Temp Pulse Resp BP Pulse Ox 98.0 F 86 16 112/57 100 06/09/19 21:00 06/09/19 21:00 06/09/19 21:00 06/09/19 21:00 06/09/19 21:00 General appearance: age & developmentally appropriate, well-groomed, well- nourished - Musculoskeletal Gait: normal Station: relaxed Strength & Tone: normal for patient - Psychiatric Patient Orientation: Yes Person, Yes Time, Yes Place, Yes Circumstance Level of alertness: Alert Behavior: calm, cooperative Psychomotor activity: Normal Eye Contact: Maintains Eye Contact Mood Description: Euthymic/stable Patient description of mood: Good Affect description: congruent with mood, full range Speech Volume: Normal Speech pattern: normal rate, normal rhythm, normal tone, fluent, spontaneous Language & Vocabulary: consistent with education Thought Process: Linear, Goal Oriented Thought Content: No Suicidal ideation, No Homicidal ideation, No Overt delusions Perceptual Disturbances: No Auditory hallucinations, No Visual hallucinations Attention Span Ability: Capable of Focused Attention Memory Description: Grossly Intact Patient Reliability: Reliable Historian Fund of knowledge: Yes abstraction ability, Yes aware of current events Intelligence Estimate: Average Judgment: Good Insight: Full Hospital Course Hospital course: Ms. Clarke is a 44 year old female who was admitted for homicidal ideations and paranoia. She was restarted on her Remeron and Seroquel was started to address the paranoia. She had as needed Vistaril and trazodone available for anxiety and insomnia.Patient was educated of diagnosis and the risk-benefit side effects of this alternative treatment options and was monitored for responsiveness and side effects. Mood anxiety sleep and appetite interest improved as did future orientation. Self-harm thoughts subsided, thinking cleared, psychosis resolved, and mood stabilized. Patient was able to attend both individual and group therapy sessions as well as meet with the psychiatrist daily and urged to di scuss any medication or treatment issues or other concerns. The patient was educated primarily by verbal means about their diagnosis and manifestations in their life. The option for treatment including group and individual therapy programming was offered to the patient in addition to the use of medications with all their potential risks, benefits, and side effects as well as the risks of not taking medication and non-adhereance were discussed with the patient at length. The patient was given the opportunity to ask questions and was noted to participate in the treatment in the planning process. The patient felt ready and eager to be discharged from the inpatient psychiatric unit to continue on with treatment as an outpatient. The patient agreed that is they were safe for this disposition. The patient was considered to be able to participate in informed consent and decision making with respect to medical, legal, and financial issues of the time of discharge. At the time of discharge the patient adamantly denied any concerns for lethality including suicidal or homicidal thoughts ideations or plans and was future oriented toward ongoing mental health care, medical follow-up and sobriety. Time spent discussing smoking cessation with patient: 3 to 10 minutes Does patient wish to continue nicotine replacement upon disc: No - Time Spent with Patient Total time spent providing and/or coordinating discharge services: 20 Less than 30 minutes Specific discharge activities: Interval history reviewed. Available labs reviewed . Psychotherapy provided. Patient had an opportunity to ask questions and address concerns. Patient was in agreement with the treatment plan. The risks benefits and side effects of medications were discussed with the patient, including alternatives and treatment. The patient was educated on the abstaining from any alcohol or illicit substances, following up with all scheduled appointments, and taking all medications as prescribed. The patient was educated on 90 meetings in 90 days and to find a sponsor. Assessment and Plan - Patient/Caregiver Discharge Instructions Activity: resume usual activities as tolerated Diet: regular diet Additional Instructions: Continue current medications. Follow up with outpatient mental health. Encourage continued therapy in a group or individual setting. The patient was discharged to home. - Follow up Plan Follow up with: [facility] [Other] (Upon discharge from the hospital you will be returning to [facility] for continued treatment. While there, you will be seen daily by [facility] counselors and case operator, both individually and in group. Please work with [facility] staff to develop a treatment plan b ased on your individual needs and goals. ) Functional capacity at discharge: independent ambulation Overall status at discharge: Stable Disposition: Home, Self-Care Quality - Multiple Antipsychotics Patient discharged on 2 or more antipsychotic medications: No Procedures - Procedures Procedures: Medication Management, Crisis Stabilization, Supportive Therapy, Group Therapy, Psychoeducational Therapy
[2019-06-10 09:59] VITALS: BP 93/58
== END 2019-06-10 10:45 | disposition home or self-care (01) | DRG 753 ==
LOC: EMEROOARM 00:53 → 1ANU 03:49
PROVIDERS: ADMIT Psychiatry & Neurology Psychiatry; ATTEND Psychiatry & Neurology Psychiatry

== ENCOUNTER 2019-12-14 22:33 | Inpatient (IN) ==
[2019-12-14] MEDS ORDERED: 0.9 % Sodium Chloride 1,000 ML IVC ONE (22:41)
[2019-12-14 23:55] LABS: Basophils % 0.3 %; Hematocrit 34.6 % (35.3-44.9); Hemoglobin 10.6 g/dL (11.5-15.4); Immature Granulocytes % 0.7 % (0-4); Immature Platelets 8.5 % (1.1-6.1); Lymphocytes # 0.1 K/mcL (0.6-4.6); Lymphocytes % 3.1 %; Mean Corpuscular HGB Conc 30.6 g/dL (31.6-35.5); Mean Corpuscular Hemoglobin 27.5 pg (28.0-33.3); Mean Corpuscular Volume 89.6 fL (83.0-100.0); Mean Platelet Volume 11.9 fL (9.4-12.4); Monocytes % 0.7 %; Neutrophils # 2.8 K/mcL (1.6-8.9); Platelet Count 111 K/mcL (140-400); Red Blood Count 3.86 M/mcL (3.82-4.97); Red Cell Distribution Width 15.1 % (11.5-14.5); Segmented Neutrophils % 94.2 %
[2019-12-14 23:57] LABS: Bilirubin,Urine Small (Negative); Blood,Urine Negative (Negative); Clarity,Urine Clear (Clear); Color,Urine Yellow (Yellow); Glucose,Urine (UA) 250 mg/dL (Normal); Ketones,Urine Negative (Negative); Leukocyte Esterase,Urine Negative (Negative); Nitrite,Urine Negative (Negative); PH,Urine 6.5 pH Units (5.0-8.0); Protein,Urine Negative (Neg-Trace); Specific Gravity,Urine 1.025 (1.010-1.025)
[2019-12-15 00:14] LABS: Prothrombin Time 10.9 Seconds (9.4-12.1)
[2019-12-15 00:15] LABS: Alanine Aminotransferase 50 Units/L (7-52); Albumin 3.3 g/dL (3.5-5.7); Albumin/Globulin Ratio 1.3 (1.1-2.2); Alkaline Phosphatase 95 Units/L (34-104); Aspartate Amino Transferase 45 Units/L (13-39); BUN/Creatinine Ratio 19 (6-26); Bilirubin,Direct 0.2 mg/dL (0.0-0.2); Bilirubin,Indirect 0.3 mg/dL (0.0-1.0); Bilirubin,Total 0.5 mg/dL (0.3-1.0); Blood Urea Nitrogen 8 mg/dL (6-20); Calcium 8.1 mg/dL (8.6-10.3); Carbon Dioxide 26 mEq/L (23-29); Chloride 102 mEq/L (98-107); Globulin 2.6 g/dL (2.4-3.5); Glucose 196 mg/dL (70-105); Osmolality,Calculated 278 (280-300); Sodium 132 mEq/L (136-145); Total Protein 5.9 g/dL (6.4-8.9); eGFR For African Americans > 60 (> 60); eGFR For Non-African Americans > 60 (> 60)
[2019-12-15 00:17] LABS: Troponin I < 0.03 ng/mL (< 0.04)
[2019-12-15] MEDS ORDERED: cefTRIAXone 1,000 MG in Water for inj. (sterile) 10 ML IVP STA (00:22)
[2019-12-15] MEDS ORDERED: Dexamethasone 4 MG/ML VIAL IVP STA (00:36)
[2019-12-15] MEDS ORDERED: *HR* OxyCODONE/APAP 10/325 TABLET PO STA (00:37)
[2019-12-15] MEDS ORDERED: Naloxone 0.4 MG/ML INJ IVP PRN (03:44)
[2019-12-15] MEDS ORDERED: *HR* Dextrose 50 % in Water (Syg) 50 ML SYRINGE IVP PRN (03:46)
[2019-12-15] MEDS ORDERED: D5% in Water 1,000 ML IVC PRN (03:46)
[2019-12-15] MEDS ORDERED: Dextrose Gel 15 GM/37.5 ML TUBE PO PRN ×2 (03:46)
[2019-12-15 04:53] LABS: Hematocrit 32.5 % (35.3-44.9); Hemoglobin 10.1 g/dL (11.5-15.4); Mean Corpuscular HGB Conc 31.1 g/dL (31.6-35.5); Mean Corpuscular Hemoglobin 27.4 pg (28.0-33.3); Mean Corpuscular Volume 88.1 fL (83.0-100.0); Mean Platelet Volume 12.2 fL (9.4-12.4); Platelet Count 109 K/mcL (140-400); Red Blood Count 3.69 M/mcL (3.82-4.97); Red Cell Distribution Width 14.9 % (11.5-14.5); White Blood Count 2.9 K/mcL (4.3-11.1)
[2019-12-15 05:09] LABS: BUN/Creatinine Ratio 17 (6-26); Blood Urea Nitrogen 7 mg/dL (6-20); Calcium 7.6 mg/dL (8.6-10.3); Carbon Dioxide 23 mEq/L (23-29); Chloride 106 mEq/L (98-107); Glucose 161 mg/dL (70-105); Magnesium 1.4 mg/dL (1.6-2.6); Osmolality,Calculated 283 (280-300); Phosphorous 3.4 mg/dL (2.7-4.5); Potassium 3.8 mEq/L (3.5-5.1); Sodium 136 mEq/L (136-145); eGFR For African Americans > 60 (> 60); eGFR For Non-African Americans > 60 (> 60)
[2019-12-15] MEDS: Dexamethasone 4 MG/ML VIAL IVP SCH ×3 (08:25→18:53)
[2019-12-15] MEDS: Nicotine 21 MG PATCH.TD24 TD SCH (08:25)
[2019-12-15] MEDS: Insulin LISPRO 300 UNITS/3 ML VIAL SQ SCH ×4 (08:27→21:22)
[2019-12-15] MEDS ORDERED: Ondansetron ODT 4 MG TAB.RAPDIS SL PRN (09:00)
[2019-12-15] MEDS: Famotidine 20 MG TABLET PO SCH ×2 (09:44→15:46)
[2019-12-15] MEDS: *HR* OxyCODONE/APAP 10/325 TABLET PO PRN ×3 (09:45→17:29)
[2019-12-15] MEDS: Renal Vitamin 1 CAP CAPSULE PO SCH (12:02)
[2019-12-15] MEDS: levETIRAcetam 250 MG TABLET PO SCH (16:51)
[2019-12-15] MEDS: Magic Mouthwash 10 ML UD Cup PO SCH (17:38)
[2019-12-15] MEDS ORDERED: Mirtazapine 15 MG TABLET PO SCH (21:00)
[2019-12-15] MEDS: Ondansetron 4 MG/2 ML VIAL IVP PRN (21:03)
[2019-12-15] MEDS ORDERED: Gadolinium Contrast Agent (WT Based) IV PRN (21:06)
[2019-12-16] MEDS: Dexamethasone 4 MG/ML VIAL IVP SCH ×4 (01:27→19:37)
[2019-12-16 04:03] LABS: White Blood Count 1.7 K/mcL (4.3-11.1)
[2019-12-16 04:04] LABS: Hematocrit 32.7 % (35.3-44.9); Hemoglobin 10.2 g/dL (11.5-15.4); Mean Corpuscular HGB Conc 31.2 g/dL (31.6-35.5); Mean Corpuscular Hemoglobin 27.9 pg (28.0-33.3); Mean Corpuscular Volume 89.6 fL (83.0-100.0); Mean Platelet Volume 11.4 fL (9.4-12.4); Platelet Count 120 K/mcL (140-400); Red Blood Count 3.65 M/mcL (3.82-4.97); Red Cell Distribution Width 14.5 % (11.5-14.5)
[2019-12-16 04:21] LABS: BUN/Creatinine Ratio 18 (6-26); Blood Urea Nitrogen 7 mg/dL (6-20); Calcium 8.5 mg/dL (8.6-10.3); Carbon Dioxide 25 mEq/L (23-29); Chloride 104 mEq/L (98-107); Glucose 241 mg/dL (70-105); Magnesium 1.7 mg/dL (1.6-2.6); Osmolality,Calculated 288 (280-300); Potassium 3.8 mEq/L (3.5-5.1); Sodium 136 mEq/L (136-145); eGFR For African Americans > 60 (> 60); eGFR For Non-African Americans > 60 (> 60)
[2019-12-16] MEDS: levETIRAcetam 250 MG TABLET PO SCH ×2 (06:25→16:56)
[2019-12-16] MEDS: *HR* OxyCODONE/APAP 10/325 TABLET PO PRN ×3 (06:29→19:42)
[2019-12-16] MEDS: Nicotine 21 MG PATCH.TD24 TD SCH (08:26)
[2019-12-16] MEDS: Renal Vitamin 1 CAP CAPSULE PO SCH (08:26)
[2019-12-16] MEDS: Famotidine 20 MG TABLET PO SCH ×2 (08:26→16:56)
[2019-12-16] MEDS: Magic Mouthwash 10 ML UD Cup PO SCH ×3 (08:28→22:05)
[2019-12-16] MEDS: Insulin LISPRO 300 UNITS/3 ML VIAL SQ SCH ×4 (08:34→21:21)
[2019-12-16 10:22] LABS: Immature Granulocytes % 0.6 % (0-4); Lymphocytes # 0.1 K/mcL (0.6-4.6); Lymphocytes % 6.7 %; Monocytes % 2.2 %; Segmented Neutrophils % 90.5 %
[2019-12-16 10:23] LABS: Neutrophils # 1.5 K/mcL (1.6-8.9)
[2019-12-16 10:38] LABS: Platelet Estimate Slight Decrease (Normal)
[2019-12-16] MEDS: Sucralfate 1 GM TABLET PO SCH ×3 (11:10→21:20)
[2019-12-16] MEDS ORDERED: Magic Mouthwash 10 ML UD Cup PO PRN (16:49)
[2019-12-16] MEDS ORDERED: *HR* Heparin 5,000 UNIT/ML VIAL SQ SCH (18:00)
[2019-12-16] MEDS: Budesonide/Formoterol 160/4.5 1 PUFF INH IH SCH (19:47)
[2019-12-16] MEDS ORDERED: Insulin DETEMIR 100 UNIT/ML X5UNITS SQ SCH ×2 (21:00)
[2019-12-16] MEDS ORDERED: QUEtiapine Fumarate 100 MG TABLET PO SCH (21:00)
[2019-12-16] MEDS ORDERED: Mirtazapine 15 MG TABLET PO SCH (21:00)
[2019-12-16] MEDS ORDERED: Melatonin 3 MG TABLET PO SCH (21:00)
[2019-12-17] MEDS: Dexamethasone 4 MG/ML VIAL IVP SCH ×3 (00:32→13:57)
[2019-12-17] MEDS: levETIRAcetam 250 MG TABLET PO SCH ×2 (05:30→17:25)
[2019-12-17 05:56] LABS: Red Cell Distribution Width 14.4 % (11.5-14.5)
[2019-12-17 05:57] LABS: Hemoglobin 10.3 g/dL (11.5-15.4); Immature Platelets 6.9 % (1.1-6.1); Mean Corpuscular HGB Conc 31.2 g/dL (31.6-35.5); Mean Corpuscular Hemoglobin 27.5 pg (28.0-33.3); Mean Corpuscular Volume 88.2 fL (83.0-100.0); Mean Platelet Volume 11.5 fL (9.4-12.4); Red Blood Count 3.74 M/mcL (3.82-4.97); White Blood Count 1.2 K/mcL (4.3-11.1)
[2019-12-17 06:05] LABS: BUN/Creatinine Ratio 29 (6-26); Blood Urea Nitrogen 14 mg/dL (6-20); Calcium 8.5 mg/dL (8.6-10.3); Carbon Dioxide 27 mEq/L (23-29); Chloride 105 mEq/L (98-107); Glucose 228 mg/dL (70-105); Osmolality,Calculated 294 (280-300); Sodium 138 mEq/L (136-145); eGFR For African Americans > 60 (> 60); eGFR For Non-African Americans > 60 (> 60)
[2019-12-17] MEDS: Budesonide/Formoterol 160/4.5 1 PUFF INH IH SCH (07:24)
[2019-12-17] MEDS: Famotidine 20 MG TABLET PO SCH ×2 (08:05→17:25)
[2019-12-17] MEDS: Sucralfate 1 GM TABLET PO SCH ×3 (08:05→17:25)
[2019-12-17] MEDS: Renal Vitamin 1 CAP CAPSULE PO SCH (08:05)
[2019-12-17] MEDS: Ondansetron 4 MG/2 ML VIAL IVP PRN (08:15)
[2019-12-17] MEDS: Insulin LISPRO 300 UNITS/3 ML VIAL SQ SCH ×3 (08:15→16:50)
[2019-12-17] MEDS ORDERED: risperiDONE 1 MG TABLET PO SCH (09:00)
[2019-12-17] MEDS ORDERED: Cyanocobalamin (B-12) 1,000 MCG TABLET PO SCH (09:00)
[2019-12-17] MEDS ORDERED: Folic Acid 1 MG TABLET PO SCH (09:00)
[2019-12-17] MEDS: Nicotine 21 MG PATCH.TD24 TD SCH (09:16)
[2019-12-17 15:20] VITALS: BP 113/63
== END 2019-12-17 18:20 | DRG 52 ==
LOC: EMEROOARM 22:33 → 3BNU 22:33
PROVIDERS: ADMIT Internal Medicine; ATTEND Internal Medicine

== ENCOUNTER 2020-03-31 12:02 | Inpatient (IN) ==
[2020-03-31] MEDS ORDERED: Naloxone 0.4 MG/ML INJ IVP PRN ×2 (16:42→23:41)
[2020-03-31] MEDS ORDERED: Ondansetron 4 MG/2 ML VIAL IVP PRN (16:42)
[2020-03-31] MEDS ORDERED: 0.9 % Sodium Chloride 1,000 ML IVC SCH (16:45)
[2020-03-31] MEDS ORDERED: Piperacillin/Tazobactam 3.375 GM in 0.9 % Sodium Chloride Mini Bag 100 ML IVPB ONE (16:46)
[2020-03-31] MEDS ORDERED: 0.9 % Sodium Chloride 500 ML ONE (17:03)
[2020-03-31] MEDS ORDERED: *HR* OxyCODONE Immed Rel 5 MG TABLET PO PRN (17:41)
[2020-03-31] MEDS ORDERED: Dextrose Gel 15 GM/37.5 ML TUBE PO PRN ×2 (17:42)
[2020-03-31] MEDS ORDERED: *HR* Dextrose 50 % in Water (Vial) 50 ML VIAL IVP PRN (17:42)
[2020-03-31] MEDS ORDERED: D5% in Water 1,000 ML IVC PRN (17:42)
[2020-03-31 17:48] LABS: ABG Base Excess -8 mEq/L (-2 to 3); ABG HCO3 15 mEq/L (21-27); ABG Oxygen Saturation 93 % (95-98); ABG PCO2 22 mmHg (35-45); ABG PH 7.45 pH Units (7.32-7.45); ABG PO2 60 mmHg (85-104); ABG TCO2 16 mEq/L (20-26)
[2020-03-31] MEDS ORDERED: Azithromycin 500 MG in 0.9 % Sodium Chloride 250 ML IVPB SCH (18:00)
[2020-03-31 18:27] LABS: BUN/Creatinine Ratio 7 (6-26); Blood Urea Nitrogen 3 mg/dL (6-20); Carbon Dioxide 18 mEq/L (23-29); Chloride 110 mEq/L (98-107); Glucose 338 mg/dL (70-105); Magnesium 2.1 mg/dL (1.6-2.6); Osmolality,Calculated 302 (280-300); Potassium 3.8 mEq/L (3.5-5.1); Sodium 141 mEq/L (136-145); eGFR For African Americans > 60 (> 60); eGFR For Non-African Americans > 60 (> 60)
[2020-03-31] MEDS: *HR* Heparin 5,000 UNIT/ML VIAL SQ SCH (18:29)
[2020-03-31 19:12] LABS: Basophils % 0.1 %; Hematocrit 26.1 % (35.3-44.9); Hemoglobin 8.5 g/dL (11.5-15.4); Immature Granulocytes % 1.2 % (0-4); Immature Platelets 18.7 % (1.1-6.1); Lymphocytes # 0.2 K/mcL (0.6-4.6); Lymphocytes % 1.3 %; Mean Corpuscular HGB Conc 32.6 g/dL (31.6-35.5); Mean Corpuscular Hemoglobin 35.4 pg (28.0-33.3); Mean Corpuscular Volume 108.8 fL (83.0-100.0); Mean Platelet Volume 14.5 fL (9.4-12.4); Monocytes # 0.4 K/mcL (0.0-1.3); Monocytes % 2.9 %; Nucleated Red Blood Cells 0.1 /100 WBC (0); Red Cell Distribution Width 17.8 % (11.5-14.5); Segmented Neutrophils % 94.5 %; White Blood Count 14.8 K/mcL (4.3-11.1)
[2020-03-31 19:15] LABS: Platelet Count 61 K/mcL (140-400)
[2020-03-31 19:58] LABS: Platelet Estimate Decreased (Normal)
[2020-03-31] MEDS: Albuterol 2.5 MG/3 ML NEBULIZER IH SCH (20:36)
[2020-03-31] MEDS ORDERED: 0.9 % Sodium Chloride 500 ML IV ONE (20:43)
[2020-03-31] MEDS ORDERED: Mirtazapine 15 MG TABLET PO SCH (21:00)
[2020-03-31] MEDS ORDERED: dexAMETHasone 4 MG TABLET PO SCH (21:00)
[2020-03-31] MEDS ORDERED: QUEtiapine Fumarate 100 MG TABLET PO SCH (21:00)
[2020-03-31] MEDS ORDERED: Insulin DETEMIR 100 UNIT/ML X5UNITS SQ SCH ×2 (21:00)
[2020-03-31] MEDS ORDERED: Vancomycin 1,250 MG/262.5 ML IV.SOLN IVPB ONE (21:10)
[2020-03-31] MEDS ORDERED: *HR* LORazepam 2 MG/ML VIAL IVP ONE (23:14)
[2020-03-31] MEDS ORDERED: Dexmedetomidine HCl 400 MCG/100 ML MLS IVC SCH (23:45)
[2020-03-31] MEDS ORDERED: Dexmedetomidine HCl 400 MCG/100 ML MLS IVC ONE (23:58)
[2020-04-01] MEDS ORDERED: *HR* FentaNYL (PF) 100 MCG/2 ML VIAL IVP PRN ×2 (00:37→00:59)
[2020-04-01 00:39] LABS: ABG Base Excess -8 mEq/L (-2 to 3); ABG HCO3 17 mEq/L (21-27); ABG Oxygen Saturation 92 % (95-98); ABG PCO2 29 mmHg (35-45); ABG PH 7.36 pH Units (7.32-7.45); ABG PO2 66 mmHg (85-104); ABG TCO2 18 mEq/L (20-26)
[2020-04-01] MEDS: Albuterol 2.5 MG/3 ML NEBULIZER IH SCH ×7 (00:47→20:21)
[2020-04-01] MEDS ORDERED: Dextrose Gel 15 GM/37.5 ML TUBE PO PRN ×6 (01:54→06:51)
[2020-04-01] MEDS ORDERED: D5% in Water 1,000 ML IVC PRN ×2 (01:54→06:51)
[2020-04-01] MEDS ORDERED: *HR* Dextrose 50 % in Water (Vial) 50 ML VIAL IVP PRN ×2 (01:54→06:51)
[2020-04-01] MEDS ORDERED: Ringers Solution, Lactated 1,000 ML IV ONE (02:09)
[2020-04-01 04:09] LABS: Basophils % 0.1 %; Hematocrit 21.5 % (35.3-44.9); Hemoglobin 6.9 g/dL (11.5-15.4); Immature Granulocytes % 1.5 % (0-4); Immature Platelets 21.5 % (1.1-6.1); Lymphocytes # 0.2 K/mcL (0.6-4.6); Mean Corpuscular HGB Conc 32.1 g/dL (31.6-35.5); Mean Corpuscular Hemoglobin 35.8 pg (28.0-33.3); Mean Corpuscular Volume 111.4 fL (83.0-100.0); Mean Platelet Volume 13.3 fL (9.4-12.4); Monocytes # 0.4 K/mcL (0.0-1.3); Monocytes % 3.4 %; Neutrophils # 9.6 K/mcL (1.6-8.9); Nucleated Red Blood Cells 0.2 /100 WBC (0); Red Blood Count 1.93 M/mcL (3.82-4.97); Red Cell Distribution Width 18.1 % (11.5-14.5); White Blood Count 10.3 K/mcL (4.3-11.1)
[2020-04-01 04:21] LABS: Platelet Count 41 K/mcL (140-400)
[2020-04-01 04:26] LABS: Alanine Aminotransferase 22 Units/L (7-52); Albumin/Globulin Ratio 1.2 (1.1-2.2); Alkaline Phosphatase 108 Units/L (34-104); Aspartate Amino Transferase 58 Units/L (13-39); BUN/Creatinine Ratio 5 (6-26); Bilirubin,Total 1.8 mg/dL (0.3-1.0); Blood Urea Nitrogen 2 mg/dL (6-20); Calcium 6.8 mg/dL (8.6-10.3); Carbon Dioxide 22 mEq/L (23-29); Chloride 114 mEq/L (98-107); Globulin 1.7 g/dL (2.4-3.5); Glucose 231 mg/dL (70-105); Osmolality,Calculated 302 (280-300); Potassium 3.7 mEq/L (3.5-5.1); Sodium 144 mEq/L (136-145); Total Protein 3.7 g/dL (6.4-8.9); eGFR For African Americans > 60 (> 60); eGFR For Non-African Americans > 60 (> 60)
[2020-04-01 04:43] LABS: Anisocytosis 1+ (Not Present); Macrocytosis Present (Not Present); Platelet Estimate Decreased (Normal)
[2020-04-01 04:44] LABS: Hypochromasia Present (Not Present)
[2020-04-01] MEDS ORDERED: 0.9 % Sodium Chloride 250 ML ONE (05:07)
[2020-04-01] MEDS: *HR* Heparin 5,000 UNIT/ML VIAL SQ SCH (05:32)
[2020-04-01] MEDS ORDERED: Insulin LISPRO 300 UNITS/3 ML VIAL SQ SCH ×2 (06:00→07:30)
[2020-04-01] MEDS ORDERED: levETIRAcetam 250 MG TABLET PO SCH (06:00)
[2020-04-01] MEDS ORDERED: Naloxone 0.4 MG/ML INJ IVP PRN (06:51)
[2020-04-01] MEDS ORDERED: Ondansetron 4 MG/2 ML VIAL IVP PRN (06:51)
[2020-04-01] MEDS ORDERED: Perflutren Lipid Microsphere 1.3 ML in 0.9 % Sodium Chloride 8.7 ML IVP ONE (07:09)
[2020-04-01] MEDS ORDERED: Albuterol 2.5 MG/3 ML NEBULIZER ONE (07:15)
[2020-04-01 08:13] LABS: Basophils % 0.1 %
[2020-04-01 08:15] LABS: Hematocrit 23.4 % (35.3-44.9); Hemoglobin 7.5 g/dL (11.5-15.4); Immature Granulocytes % 2.1 % (0-4); Immature Platelets 22.2 % (1.1-6.1); Lymphocytes # 0.3 K/mcL (0.6-4.6); Lymphocytes % 3.3 %; Mean Corpuscular HGB Conc 32.1 g/dL (31.6-35.5); Mean Corpuscular Hemoglobin 35.2 pg (28.0-33.3); Mean Corpuscular Volume 109.9 fL (83.0-100.0); Monocytes # 0.2 K/mcL (0.0-1.3); Monocytes % 2.8 %; Nucleated Red Blood Cells 0.3 /100 WBC (0); Red Blood Count 2.13 M/mcL (3.82-4.97); Red Cell Distribution Width 18.1 % (11.5-14.5); Segmented Neutrophils % 91.7 %; White Blood Count 8.7 K/mcL (4.3-11.1)
[2020-04-01 08:40] LABS: Platelet Count 33 K/mcL (140-400)
[2020-04-01] MEDS ORDERED: Nicotine 7 MG PATCH.TD24 TD SCH (09:00)
[2020-04-01] MEDS ORDERED: risperiDONE 1 MG TABLET PO SCH (09:00)
[2020-04-01] MEDS ORDERED: dexAMETHasone 4 MG TABLET PO SCH (09:00)
[2020-04-01] MEDS ORDERED: Dexmedetomidine HCl 400 MCG/100 ML MLS IVC ONE (09:04)
[2020-04-01] MEDS: Piperacillin/Tazobactam 3.375 GM in 0.9 % Sodium Chloride Mini Bag 100 ML IVPB SCH (09:09)
[2020-04-01] MEDS: risperiDONE 1 MG TABLET PO SCH (09:12)
[2020-04-01] MEDS: Nicotine 7 MG PATCH.TD24 TD SCH (09:13)
[2020-04-01] MEDS: Dexmedetomidine HCl 400 MCG/100 ML MLS IVC SCH ×2 (09:15→21:41)
[2020-04-01] MEDS: *HR* FentaNYL (PF) 100 MCG/2 ML VIAL IVP PRN ×3 (09:26→22:10)
[2020-04-01] MEDS: levoFLOXacin 750 MG/150 ML 750 MG/150 ML BAG IVPB SCH (09:30)
[2020-04-01] MEDS: Insulin LISPRO 300 UNITS/3 ML VIAL SQ SCH ×2 (12:07→18:15)
[2020-04-01] MEDS ORDERED: Isovue-370 500 ML BOTTLE IVP ONE ×2 (15:00→15:38)
[2020-04-01] MEDS ORDERED: Azithromycin 500 MG in 0.9 % Sodium Chloride 250 ML IVPB SCH (18:00)
[2020-04-01] MEDS ORDERED: *HR* Heparin 5,000 UNIT/ML VIAL SQ SCH ×2 (18:00)
[2020-04-01] MEDS: Cefepime HCl 2,000 MG in Water for inj. (sterile) 20 ML IVP SCH (18:56)
[2020-04-01] MEDS: Mirtazapine 15 MG TABLET PO SCH (20:35)
[2020-04-01] MEDS: QUEtiapine Fumarate 100 MG TABLET PO SCH (20:35)
[2020-04-01] MEDS: MethylPREDNISolone 40 MG/ML VIAL IVP SCH (20:59)
[2020-04-01] MEDS ORDERED: Insulin DETEMIR 100 UNIT/ML X5UNITS SQ SCH (21:00)
[2020-04-01 21:05] LABS: Hematocrit 25.2 % (35.3-44.9); Hemoglobin 8.1 g/dL (11.5-15.4)
[2020-04-01 21:29] LABS: Alanine Aminotransferase 25 Units/L (7-52); Albumin 2.1 g/dL (3.5-5.7); Albumin/Globulin Ratio 1.1 (1.1-2.2); Alkaline Phosphatase 131 Units/L (34-104); Aspartate Amino Transferase 76 Units/L (13-39); BUN/Creatinine Ratio 11 (6-26); Bilirubin,Total 1.9 mg/dL (0.3-1.0); Blood Urea Nitrogen 3 mg/dL (6-20); Carbon Dioxide 24 mEq/L (23-29); Chloride 115 mEq/L (98-107); Glucose 36 mg/dL (70-105); Osmolality,Calculated 291 (280-300); Potassium 3.1 mEq/L (3.5-5.1); Sodium 144 mEq/L (136-145); Total Protein 4.1 g/dL (6.4-8.9); eGFR For African Americans > 60 (> 60); eGFR For Non-African Americans > 60 (> 60)
[2020-04-01] MEDS: *HR* Dextrose 50 % in Water (Vial) 50 ML VIAL IVP PRN (21:41)
[2020-04-02] MEDS: Insulin LISPRO 300 UNITS/3 ML VIAL SQ SCH ×5 (00:13→23:26)
[2020-04-02] MEDS ORDERED: D5% in Lactated Ringers 1,000 ML IVC SCH (00:15)
[2020-04-02] MEDS: *HR* Dextrose 50 % in Water (Vial) 50 ML VIAL IVP PRN (00:20)
[2020-04-02] MEDS: Albuterol 2.5 MG/3 ML NEBULIZER IH SCH ×7 (00:32→23:23)
[2020-04-02] MEDS: MethylPREDNISolone 40 MG/ML VIAL IVP SCH ×3 (04:04→20:54)
[2020-04-02 04:09] LABS: Bilirubin,Urine Negative (Negative); Blood,Urine Negative (Negative); Clarity,Urine Clear (Clear); Color,Urine Light-Yellow (Yellow); Glucose,Urine (UA) Normal (Normal); Ketones,Urine Negative (Negative); Leukocyte Esterase,Urine Negative (Negative); Nitrite,Urine Negative (Negative); PH,Urine 6.5 pH Units (5.0-8.0); Protein,Urine Negative (Neg-Trace); Specific Gravity,Urine 1.022 (1.010-1.025); Urobilinogen,Urine Normal (Normal)
[2020-04-02 04:13] LABS: INR 1.8; Prothrombin Time 20.1 Seconds (9.4-12.1)
[2020-04-02 04:16] LABS: Activated Partial Thrombo Time 43.4 Seconds (26.0-36.0)
[2020-04-02 04:21] LABS: Basophils % 0.1 %; Hematocrit 21.7 % (35.3-44.9); Hemoglobin 7.2 g/dL (11.5-15.4); Immature Granulocytes % 1.6 % (0-4); Immature Platelets 27.1 % (1.1-6.1); Lymphocytes # 0.2 K/mcL (0.6-4.6); Lymphocytes % 2.8 %; Mean Corpuscular HGB Conc 33.2 g/dL (31.6-35.5); Mean Corpuscular Hemoglobin 35.6 pg (28.0-33.3); Mean Corpuscular Volume 107.4 fL (83.0-100.0); Monocytes # 0.2 K/mcL (0.0-1.3); Monocytes % 2.6 %; Neutrophils # 6.9 K/mcL (1.6-8.9); Nucleated Red Blood Cells 0.3 /100 WBC (0); Red Blood Count 2.02 M/mcL (3.82-4.97); Red Cell Distribution Width 17.7 % (11.5-14.5); Segmented Neutrophils % 92.9 %; White Blood Count 7.4 K/mcL (4.3-11.1)
[2020-04-02 04:22] LABS: VBG Ionized Calcium 1.06 mmol/L (1.15-1.35)
[2020-04-02 04:23] LABS: Platelet Count 33 K/mcL (140-400)
[2020-04-02 04:30] LABS: BUN/Creatinine Ratio 10 (6-26); Blood Urea Nitrogen 3 mg/dL (6-20); Calcium 6.9 mg/dL (8.6-10.3); Carbon Dioxide 26 mEq/L (23-29); Chloride 113 mEq/L (98-107); Glucose 81 mg/dL (70-105); Magnesium 1.5 mg/dL (1.6-2.6); Osmolality,Calculated 294 (280-300); Sodium 144 mEq/L (136-145); eGFR For African Americans > 60 (> 60); eGFR For Non-African Americans > 60 (> 60)
[2020-04-02] MEDS: *HR* FentaNYL (PF) 100 MCG/2 ML VIAL IVP PRN ×2 (04:48→23:51)
[2020-04-02] MEDS: Cefepime HCl 2,000 MG in Water for inj. (sterile) 20 ML IVP SCH ×2 (05:39→16:45)
[2020-04-02] MEDS ORDERED: Potassium Phosphate 44 MEQ in 0.9 % Sodium Chloride 250 ML IVPB ONE (06:58)
[2020-04-02] MEDS: *HR* OxyCODONE Immed Rel 5 MG TABLET PO PRN ×2 (08:01→22:32)
[2020-04-02] MEDS: risperiDONE 1 MG TABLET PO SCH (08:02)
[2020-04-02] MEDS: Calcium Gluconate 1gm/50mL 1 GM/50 ML BAG IVPB SCH ×2 (08:03→09:20)
[2020-04-02] MEDS: levoFLOXacin 750 MG/150 ML 750 MG/150 ML BAG IVPB SCH (08:04)
[2020-04-02] MEDS: Nicotine 7 MG PATCH.TD24 TD SCH (08:04)
[2020-04-02] MEDS ORDERED: Furosemide 40 MG/4 ML VIAL IVP ONE ×3 (08:59→21:00)
[2020-04-02] MEDS: Dexmedetomidine HCl 400 MCG/100 ML MLS IVC SCH ×2 (09:17→19:00)
[2020-04-02 09:53] LABS: Alanine Aminotransferase 24 Units/L (7-52); Albumin/Globulin Ratio 1.1 (1.1-2.2); Alkaline Phosphatase 126 Units/L (34-104); Aspartate Amino Transferase 73 Units/L (13-39); Bilirubin,Indirect 0.7 mg/dL (0.0-1.0); Bilirubin,Total 1.7 mg/dL (0.3-1.0); Globulin 1.9 g/dL (2.4-3.5); Total Protein 3.9 g/dL (6.4-8.9)
[2020-04-02] MEDS: levETIRAcetam 250 MG TABLET PO SCH (16:45)
[2020-04-02] MEDS: QUEtiapine Fumarate 100 MG TABLET PO SCH (20:59)
[2020-04-02] MEDS: Mirtazapine 15 MG TABLET PO SCH (21:01)
[2020-04-03 03:27] LABS: Hemoglobin 7.6 g/dL (11.5-15.4); Nucleated Red Blood Cells 0.7 /100 WBC (0)
[2020-04-03 03:29] LABS: Basophils % 0.2 %; Hematocrit 23.2 % (35.3-44.9); Immature Granulocytes % 1.7 % (0-4); Immature Platelets 33.1 % (1.1-6.1); Lymphocytes # 0.2 K/mcL (0.6-4.6); Lymphocytes % 3.8 %; Mean Corpuscular HGB Conc 32.8 g/dL (31.6-35.5); Mean Corpuscular Hemoglobin 34.9 pg (28.0-33.3); Mean Corpuscular Volume 106.4 fL (83.0-100.0); Monocytes # 0.3 K/mcL (0.0-1.3); Monocytes % 4.2 %; Neutrophils # 5.4 K/mcL (1.6-8.9); Red Blood Count 2.18 M/mcL (3.82-4.97); Red Cell Distribution Width 18.4 % (11.5-14.5); Segmented Neutrophils % 90.1 %
[2020-04-03 03:31] LABS: INR 2.4; Prothrombin Time 27.8 Seconds (9.4-12.1)
[2020-04-03 03:34] LABS: Activated Partial Thrombo Time 37.4 Seconds (26.0-36.0)
[2020-04-03 03:36] LABS: Platelet Count 34 K/mcL (140-400)
[2020-04-03 03:37] LABS: VBG Ionized Calcium 1.02 mmol/L (1.15-1.35)
[2020-04-03] MEDS: MethylPREDNISolone 40 MG/ML VIAL IVP SCH ×3 (03:40→20:14)
[2020-04-03] MEDS: Dexmedetomidine HCl 400 MCG/100 ML MLS IVC SCH (03:47)
[2020-04-03 03:48] LABS: Alanine Aminotransferase 30 Units/L (7-52); Albumin 2.2 g/dL (3.5-5.7); Alkaline Phosphatase 151 Units/L (34-104); Aspartate Amino Transferase 82 Units/L (13-39); BUN/Creatinine Ratio 9 (6-26); Bilirubin,Total 2.1 mg/dL (0.3-1.0); Blood Urea Nitrogen 5 mg/dL (6-20); Calcium 7.3 mg/dL (8.6-10.3); Carbon Dioxide 33 mEq/L (23-29); Chloride 101 mEq/L (98-107); Globulin 2.2 g/dL (2.4-3.5); Glucose 173 mg/dL (70-105); Magnesium 1.4 mg/dL (1.6-2.6); Osmolality,Calculated 297 (280-300); Phosphorous 3.8 mg/dL (2.7-4.5); Potassium 2.8 mEq/L (3.5-5.1); Sodium 143 mEq/L (136-145); Total Protein 4.4 g/dL (6.4-8.9); eGFR For African Americans > 60 (> 60); eGFR For Non-African Americans > 60 (> 60)
[2020-04-03] MEDS: Albuterol 2.5 MG/3 ML NEBULIZER IH SCH ×6 (03:52→23:16)
[2020-04-03] MEDS: Cefepime HCl 2,000 MG in Water for inj. (sterile) 20 ML IVP SCH ×2 (05:17→16:57)
[2020-04-03] MEDS: levETIRAcetam 250 MG TABLET PO SCH ×2 (05:19→16:56)
[2020-04-03] MEDS: Insulin LISPRO 300 UNITS/3 ML VIAL SQ SCH ×4 (06:06→23:47)
[2020-04-03] MEDS: *HR* OxyCODONE Immed Rel 5 MG TABLET PO PRN ×2 (07:38→18:02)
[2020-04-03] MEDS ORDERED: Furosemide 20 MG/2 ML VIAL IVP ONE (08:00)
[2020-04-03] MEDS: Nicotine 7 MG PATCH.TD24 TD SCH (09:40)
[2020-04-03] MEDS ORDERED: Lidocaine Viscous Oral Soln 15 ML SOLUTION MM PRN (09:53)
[2020-04-03] MEDS ORDERED: *HR* FentaNYL (PF) 100 MCG/2 ML VIAL IVP PRN (09:53)
[2020-04-03] MEDS ORDERED: *HR* Midazolam HCl 5 MG/5 ML VIAL IVP PRN ×2 (09:54→11:41)
[2020-04-03] MEDS: levoFLOXacin 750 MG/150 ML 750 MG/150 ML BAG IVPB SCH (10:10)
[2020-04-03] MEDS: *HR* FentaNYL (PF) 100 MCG/2 ML VIAL IVP PRN (11:09)
[2020-04-03] MEDS: Phenylephrine 10 MG in 0.9 % Sodium Chloride 250 ML IVC SCH ×5 (11:23→21:39)
[2020-04-03] MEDS ORDERED: *HR* FentaNYL (PF) 100 MCG/2 ML VIAL IVP ONE (12:00)
[2020-04-03] MEDS: risperiDONE 1 MG TABLET PO SCH (12:51)
[2020-04-03] MEDS: Calcium Gluconate 1gm/50mL 1 GM/50 ML BAG IVPB SCH ×3 (12:53→18:06)
[2020-04-03] MEDS ORDERED: *HR* Etomidate 20 MG/10 ML AMPUL IVP ONE (15:40)
[2020-04-03] MEDS ORDERED: Potassium Chloride 40 MEQ/200 ML BAG IVPB PRN (19:41)
[2020-04-03 20:10] LABS: VBG Ionized Calcium 1.07 mmol/L (1.15-1.35)
[2020-04-03] MEDS: Mirtazapine 15 MG TABLET PO SCH (20:15)
[2020-04-03] MEDS: QUEtiapine Fumarate 100 MG TABLET PO SCH (20:15)
[2020-04-03 22:15] LABS: VBG Ionized Calcium 1.05 mmol/L (1.15-1.35)
[2020-04-03 23:14] LABS: Magnesium 2.3 mg/dL (1.6-2.6)
[2020-04-03] MEDS: Calcium Gluconate 1gm/50mL 1 GM/50 ML BAG IVPB PRN (23:42)
[2020-04-04] MEDS ORDERED: Mag Hydrox/Al Hydrox/Simeth 30 ML UDC PO PRN ×2 (00:36→12:54)
[2020-04-04] MEDS: Pantoprazole 40 MG VIAL IVP SCH ×2 (00:45→05:53)
[2020-04-04] MEDS: Albuterol 2.5 MG/3 ML NEBULIZER IH SCH ×5 (03:03→21:58)
[2020-04-04] MEDS: MethylPREDNISolone 40 MG/ML VIAL IVP SCH ×2 (03:39→21:34)
[2020-04-04 03:42] LABS: VBG Ionized Calcium 1.09 mmol/L (1.15-1.35)
[2020-04-04 03:46] LABS: Red Blood Count 1.74 M/mcL (3.82-4.97)
[2020-04-04 03:47] LABS: INR 1.4; Prothrombin Time 16.2 Seconds (9.4-12.1)
[2020-04-04 03:48] LABS: Hematocrit 19.2 % (35.3-44.9); Hemoglobin 6.1 g/dL (11.5-15.4); Immature Granulocytes % 1.8 % (0-4); Lymphocytes # 0.3 K/mcL (0.6-4.6); Lymphocytes % 2.8 %; Mean Corpuscular HGB Conc 31.8 g/dL (31.6-35.5); Mean Corpuscular Hemoglobin 35.1 pg (28.0-33.3); Mean Corpuscular Volume 110.3 fL (83.0-100.0); Mean Platelet Volume 11.7 fL (9.4-12.4); Monocytes # 0.3 K/mcL (0.0-1.3); Nucleated Red Blood Cells 0.6 /100 WBC (0); Platelet Count 114 K/mcL (140-400); Red Cell Distribution Width 19.6 % (11.5-14.5); Segmented Neutrophils % 92.4 %; White Blood Count 9.6 K/mcL (4.3-11.1)
[2020-04-04 04:02] LABS: Neutrophils # 8.9 K/mcL (1.6-8.9)
[2020-04-04 04:06] LABS: Alanine Aminotransferase 31 Units/L (7-52); Albumin 2.6 g/dL (3.5-5.7); Albumin/Globulin Ratio 1.2 (1.1-2.2); Alkaline Phosphatase 137 Units/L (34-104); Aspartate Amino Transferase 62 Units/L (13-39); BUN/Creatinine Ratio 11 (6-26); Bilirubin,Total 2.3 mg/dL (0.3-1.0); Blood Urea Nitrogen 7 mg/dL (6-20); Carbon Dioxide 33 mEq/L (23-29); Chloride 104 mEq/L (98-107); Globulin 2.1 g/dL (2.4-3.5); Glucose 141 mg/dL (70-105); Magnesium 2.2 mg/dL (1.6-2.6); Osmolality,Calculated 302 (280-300); Phosphorous 4.8 mg/dL (2.7-4.5); Potassium 3.5 mEq/L (3.5-5.1); Sodium 146 mEq/L (136-145); Total Protein 4.7 g/dL (6.4-8.9); eGFR For African Americans > 60 (> 60); eGFR For Non-African Americans > 60 (> 60)
[2020-04-04 04:09] LABS: Anisocytosis 2+ (Not Present); Large Platelets Present (Not Present); Macrocytosis Present (Not Present); Platelet Estimate Slight Decrease (Normal); Poikilocytosis 1+ (Not Present); Target Cells 1+ (Not Present)
[2020-04-04] MEDS: Calcium Gluconate 1gm/50mL 1 GM/50 ML BAG IVPB PRN (05:00)
[2020-04-04] MEDS: levETIRAcetam 250 MG TABLET PO SCH ×2 (05:53→17:10)
[2020-04-04] MEDS: Cefepime HCl 2,000 MG in Water for inj. (sterile) 20 ML IVP SCH ×2 (05:53→17:09)
[2020-04-04] MEDS: Insulin LISPRO 300 UNITS/3 ML VIAL SQ SCH ×3 (05:58→17:23)
[2020-04-04] MEDS: *HR* OxyCODONE Immed Rel 5 MG TABLET PO PRN ×4 (06:00→18:36)
[2020-04-04] MEDS: Dexmedetomidine HCl 400 MCG/100 ML MLS IVC SCH (06:06)
[2020-04-04] MEDS: 0.9 % Sodium Chloride 250 ML ONE ×2 (06:30→06:32)
[2020-04-04] MEDS: Calcium Gluconate 1gm/50mL 1 GM/50 ML BAG IVPB SCH (07:52)
[2020-04-04] MEDS: Piperacillin/Tazobactam 3.375 GM in 0.9 % Sodium Chloride Mini Bag 100 ML IVPB SCH (07:54)
[2020-04-04] MEDS ORDERED: MethylPREDNISolone 40 MG/ML VIAL IVP SCH (08:30)
[2020-04-04] MEDS: Nicotine 7 MG PATCH.TD24 TD SCH (08:37)
[2020-04-04] MEDS: risperiDONE 1 MG TABLET PO SCH (08:38)
[2020-04-04] MEDS: levoFLOXacin 750 MG/150 ML 750 MG/150 ML BAG IVPB SCH (08:42)
[2020-04-04] MEDS ORDERED: Thiamine (B-1) 100 MG TABLET PO SCH (09:00)
[2020-04-04] MEDS ORDERED: Folic Acid 1 MG TABLET PO SCH (09:00)
[2020-04-04] MEDS ORDERED: Furosemide 20 MG/2 ML VIAL IVP ONE (10:59)
[2020-04-04] MEDS ORDERED: Dextrose Gel 15 GM/37.5 ML TUBE PO PRN ×2 (12:54)
[2020-04-04] MEDS ORDERED: *HR* Dextrose 50 % in Water (Vial) 50 ML VIAL IVP PRN (12:54)
[2020-04-04] MEDS ORDERED: D5% in Water 1,000 ML IVC PRN (12:54)
[2020-04-04] MEDS ORDERED: Lidocaine Viscous Oral Soln 15 ML SOLUTION MM PRN (12:54)
[2020-04-04] MEDS ORDERED: Naloxone 0.4 MG/ML INJ IVP PRN (12:54)
[2020-04-04] MEDS ORDERED: Ondansetron 4 MG/2 ML VIAL IVP PRN (12:54)
[2020-04-04 13:06] LABS: VBG Ionized Calcium 1.02 mmol/L (1.15-1.35)
[2020-04-04] MEDS ORDERED: *HR* FentaNYL (PF) 100 MCG/2 ML VIAL IVP ONE (13:13)
[2020-04-04] MEDS ORDERED: Calcium Gluconate 1gm/50mL 1 GM/50 ML BAG IVPB ONE (13:37)
[2020-04-04 15:33] LABS: Hematocrit 32.1 % (35.3-44.9)
[2020-04-04] MEDS: Mirtazapine 15 MG TABLET PO SCH (21:35)
[2020-04-04] MEDS: QUEtiapine Fumarate 100 MG TABLET PO SCH (21:35)
[2020-04-04] MEDS: Budesonide/Formoterol 160/4.5 1 PUFF INH IH SCH (21:57)
[2020-04-05] MEDS: *HR* OxyCODONE Immed Rel 5 MG TABLET PO PRN ×3 (00:16→15:12)
[2020-04-05] MEDS: Insulin LISPRO 300 UNITS/3 ML VIAL SQ SCH ×5 (00:24→19:47)
[2020-04-05] MEDS: Albuterol 2.5 MG/3 ML NEBULIZER IH SCH ×4 (03:44→20:25)
[2020-04-05 04:55] LABS: VBG Ionized Calcium 1.05 mmol/L (1.15-1.35)
[2020-04-05 04:56] LABS: Basophils % 0.2 %; Eosinophils % 0.2 %; Hemoglobin 10.7 g/dL (11.5-15.4); Red Cell Distribution Width 20.9 % (11.5-14.5)
[2020-04-05 04:57] LABS: INR 1.4; Prothrombin Time 15.7 Seconds (9.4-12.1)
[2020-04-05 04:58] LABS: Hematocrit 32.7 % (35.3-44.9); Immature Granulocytes % 1.9 % (0-4); Immature Platelets 16.8 % (1.1-6.1); Lymphocytes # 0.3 K/mcL (0.6-4.6); Mean Corpuscular HGB Conc 32.7 g/dL (31.6-35.5); Mean Corpuscular Hemoglobin 32.4 pg (28.0-33.3); Mean Corpuscular Volume 99.1 fL (83.0-100.0); Mean Platelet Volume 11.6 fL (9.4-12.4); Monocytes # 0.3 K/mcL (0.0-1.3); Monocytes % 2.4 %; Neutrophils # 11.6 K/mcL (1.6-8.9); Nucleated Red Blood Cells 0.5 /100 WBC (0); Segmented Neutrophils % 93.3 %; White Blood Count 12.4 K/mcL (4.3-11.1)
[2020-04-05 04:59] LABS: Platelet Count 75 K/mcL (140-400)
[2020-04-05 05:00] LABS: Activated Partial Thrombo Time 27.8 Seconds (26.0-36.0)
[2020-04-05 05:17] LABS: Alanine Aminotransferase 26 Units/L (7-52); Albumin 2.6 g/dL (3.5-5.7); Albumin/Globulin Ratio 1.2 (1.1-2.2); Alkaline Phosphatase 136 Units/L (34-104); Aspartate Amino Transferase 44 Units/L (13-39); BUN/Creatinine Ratio 13 (6-26); Bilirubin,Total 2.9 mg/dL (0.3-1.0); Blood Urea Nitrogen 8 mg/dL (6-20); Carbon Dioxide 32 mEq/L (23-29); Chloride 101 mEq/L (98-107); Globulin 2.1 g/dL (2.4-3.5); Glucose 209 mg/dL (70-105); Magnesium 1.6 mg/dL (1.6-2.6); Osmolality,Calculated 300 (280-300); Phosphorous 3.9 mg/dL (2.7-4.5); Potassium 3.6 mEq/L (3.5-5.1); Sodium 143 mEq/L (136-145); Total Protein 4.7 g/dL (6.4-8.9); eGFR For African Americans > 60 (> 60); eGFR For Non-African Americans > 60 (> 60)
[2020-04-05] MEDS: Cefepime HCl 2,000 MG in Water for inj. (sterile) 20 ML IVP SCH ×2 (05:50→17:41)
[2020-04-05] MEDS: Pantoprazole 40 MG VIAL IVP SCH (05:51)
[2020-04-05] MEDS: levETIRAcetam 250 MG TABLET PO SCH ×2 (05:52→17:41)
[2020-04-05] MEDS: Budesonide/Formoterol 160/4.5 1 PUFF INH IH SCH ×2 (08:07→20:24)
[2020-04-05] MEDS ORDERED: Folic Acid 1 MG TABLET PO SCH (09:00)
[2020-04-05] MEDS: Thiamine (B-1) 100 MG TABLET PO SCH (09:16)
[2020-04-05] MEDS: Folic Acid 1 MG TABLET PO SCH (09:16)
[2020-04-05] MEDS: risperiDONE 1 MG TABLET PO SCH (09:16)
[2020-04-05] MEDS: Cyanocobalamin (B-12) 1,000 MCG TABLET PO SCH (09:16)
[2020-04-05] MEDS: MethylPREDNISolone 40 MG/ML VIAL IVP SCH ×2 (09:16→19:43)
[2020-04-05] MEDS: levoFLOXacin 750 MG/150 ML 750 MG/150 ML BAG IVPB SCH (09:17)
[2020-04-05] MEDS: Nicotine 7 MG PATCH.TD24 TD SCH (09:17)
[2020-04-05] MEDS ORDERED: Aminoglycoside Consult 1 EACH MC ONE (16:13)
[2020-04-05] MEDS ORDERED: *HR* OxyCODONE Immed Rel 5 MG TABLET PO ONE (17:26)
[2020-04-05] MEDS: Melatonin 3 MG TABLET PO SCH (19:43)
[2020-04-05] MEDS: QUEtiapine Fumarate 100 MG TABLET PO SCH (19:44)
[2020-04-05] MEDS: Mirtazapine 15 MG TABLET PO SCH (19:44)
[2020-04-06] MEDS: Albuterol 2.5 MG/3 ML NEBULIZER IH SCH ×4 (04:01→21:17)
[2020-04-06 04:59] LABS: Hematocrit 32.1 % (35.3-44.9); Red Cell Distribution Width 19.3 % (11.5-14.5)
[2020-04-06 05:01] LABS: Hemoglobin 10.5 g/dL (11.5-15.4); Immature Platelets 20.6 % (1.1-6.1); Mean Corpuscular HGB Conc 32.7 g/dL (31.6-35.5); Mean Corpuscular Volume 100.9 fL (83.0-100.0); Mean Platelet Volume 13.3 fL (9.4-12.4); Red Blood Count 3.18 M/mcL (3.82-4.97); White Blood Count 7.7 K/mcL (4.3-11.1)
[2020-04-06 05:19] LABS: Alanine Aminotransferase 20 Units/L (7-52); Albumin 2.5 g/dL (3.5-5.7); Albumin/Globulin Ratio 1.3 (1.1-2.2); Alkaline Phosphatase 128 Units/L (34-104); Aspartate Amino Transferase 32 Units/L (13-39); BUN/Creatinine Ratio 14 (6-26); Bilirubin,Direct 1.3 mg/dL (0.0-0.2); Bilirubin,Total 2.3 mg/dL (0.3-1.0); Blood Urea Nitrogen 7 mg/dL (6-20); Calcium 7.8 mg/dL (8.6-10.3); Carbon Dioxide 33 mEq/L (23-29); Chloride 102 mEq/L (98-107); Globulin 1.9 g/dL (2.4-3.5); Glucose 186 mg/dL (70-105); Magnesium 1.4 mg/dL (1.6-2.6); Osmolality,Calculated 299 (280-300); Phosphorous 3.3 mg/dL (2.7-4.5); Potassium 3.3 mEq/L (3.5-5.1); Sodium 143 mEq/L (136-145); Total Protein 4.4 g/dL (6.4-8.9); eGFR For African Americans > 60 (> 60); eGFR For Non-African Americans > 60 (> 60)
[2020-04-06] MEDS: levETIRAcetam 250 MG TABLET PO SCH ×2 (05:37→17:38)
[2020-04-06] MEDS: *HR* OxyCODONE Immed Rel 5 MG TABLET PO PRN ×3 (05:37→21:22)
[2020-04-06] MEDS: Cefepime HCl 2,000 MG in Water for inj. (sterile) 20 ML IVP SCH ×2 (05:38→17:38)
[2020-04-06] MEDS: Pantoprazole 40 MG VIAL IVP SCH (05:39)
[2020-04-06] MEDS: MethylPREDNISolone 40 MG/ML VIAL IVP SCH (08:17)
[2020-04-06] MEDS: Thiamine (B-1) 100 MG TABLET PO SCH (08:17)
[2020-04-06] MEDS: risperiDONE 1 MG TABLET PO SCH (08:17)
[2020-04-06] MEDS: Folic Acid 1 MG TABLET PO SCH (08:18)
[2020-04-06] MEDS: Cyanocobalamin (B-12) 1,000 MCG TABLET PO SCH (08:18)
[2020-04-06] MEDS: Nicotine 7 MG PATCH.TD24 TD SCH (08:19)
[2020-04-06] MEDS: levoFLOXacin 750 MG/150 ML 750 MG/150 ML BAG IVPB SCH (08:20)
[2020-04-06] MEDS: Insulin LISPRO 300 UNITS/3 ML VIAL SQ SCH ×4 (08:28→21:12)
[2020-04-06] MEDS: *HR* OxyCODONE Immed Rel 15 MG TABLET PO PRN ×2 (09:30→17:38)
[2020-04-06] MEDS: Budesonide/Formoterol 160/4.5 1 PUFF INH IH SCH ×2 (10:07→21:17)
[2020-04-06] MEDS: predniSONE 20 MG TABLET PO SCH (10:47)
[2020-04-06 18:39] LABS: BUN/Creatinine Ratio 16 (6-26); Blood Urea Nitrogen 8 mg/dL (6-20); Calcium 8.4 mg/dL (8.6-10.3); Carbon Dioxide 34 mEq/L (23-29); Chloride 103 mEq/L (98-107); Glucose 143 mg/dL (70-105); Magnesium 2.1 mg/dL (1.6-2.6); Osmolality,Calculated 293 (280-300); Potassium 3.8 mEq/L (3.5-5.1); Sodium 141 mEq/L (136-145); eGFR For African Americans > 60 (> 60); eGFR For Non-African Americans > 60 (> 60)
[2020-04-06] MEDS: Melatonin 3 MG TABLET PO SCH (21:21)
[2020-04-06] MEDS: QUEtiapine Fumarate 100 MG TABLET PO SCH (21:21)
[2020-04-06] MEDS: Mirtazapine 15 MG TABLET PO SCH (21:22)
[2020-04-07] MEDS: Albuterol 2.5 MG/3 ML NEBULIZER IH SCH ×4 (03:05→21:10)
[2020-04-07] MEDS: *HR* OxyCODONE Immed Rel 5 MG TABLET PO PRN ×2 (03:48→15:23)
[2020-04-07 04:42] LABS: Alanine Aminotransferase 21 Units/L (7-52); Albumin 2.6 g/dL (3.5-5.7); Albumin/Globulin Ratio 1.2 (1.1-2.2); Alkaline Phosphatase 123 Units/L (34-104); Aspartate Amino Transferase 35 Units/L (13-39); BUN/Creatinine Ratio 13 (6-26); Bilirubin,Total 2.3 mg/dL (0.3-1.0); Blood Urea Nitrogen 6 mg/dL (6-20); Calcium 7.9 mg/dL (8.6-10.3); Carbon Dioxide 29 mEq/L (23-29); Chloride 106 mEq/L (98-107); Globulin 2.1 g/dL (2.4-3.5); Glucose 113 mg/dL (70-105); Magnesium 1.7 mg/dL (1.6-2.6); Osmolality,Calculated 294 (280-300); Phosphorous 1.9 mg/dL (2.7-4.5); Potassium 3.5 mEq/L (3.5-5.1); Sodium 143 mEq/L (136-145); Total Protein 4.7 g/dL (6.4-8.9); eGFR For African Americans > 60 (> 60); eGFR For Non-African Americans > 60 (> 60)
[2020-04-07 04:50] LABS: Basophils % 0.3 %; Eosinophils # 0.2 K/mcL (0.0-0.6); Eosinophils % 2.5 %; Hematocrit 34.5 % (35.3-44.9); Hemoglobin 10.9 g/dL (11.5-15.4); Immature Granulocytes % 4.1 % (0-4); Immature Platelets 25.9 % (1.1-6.1); Lymphocytes # 0.5 K/mcL (0.6-4.6); Lymphocytes % 7.3 %; Mean Corpuscular HGB Conc 31.6 g/dL (31.6-35.5); Mean Corpuscular Hemoglobin 32.8 pg (28.0-33.3); Mean Corpuscular Volume 103.9 fL (83.0-100.0); Mean Platelet Volume 13.7 fL (9.4-12.4); Monocytes # 0.4 K/mcL (0.0-1.3); Monocytes % 6.8 %; Red Blood Count 3.32 M/mcL (3.82-4.97); White Blood Count 6.3 K/mcL (4.3-11.1)
[2020-04-07 04:52] LABS: Platelet Count 38 K/mcL (140-400)
[2020-04-07] MEDS: levETIRAcetam 250 MG TABLET PO SCH ×2 (05:17→15:56)
[2020-04-07] MEDS: *HR* OxyCODONE Immed Rel 15 MG TABLET PO PRN (05:21)
[2020-04-07] MEDS: Insulin LISPRO 300 UNITS/3 ML VIAL SQ SCH ×4 (07:34→21:32)
[2020-04-07] MEDS: predniSONE 20 MG TABLET PO SCH (07:45)
[2020-04-07] MEDS: risperiDONE 1 MG TABLET PO SCH (07:46)
[2020-04-07] MEDS: Folic Acid 1 MG TABLET PO SCH (07:46)
[2020-04-07] MEDS: Thiamine (B-1) 100 MG TABLET PO SCH (07:46)
[2020-04-07] MEDS: Cyanocobalamin (B-12) 1,000 MCG TABLET PO SCH (07:46)
[2020-04-07] MEDS: Nicotine 7 MG PATCH.TD24 TD SCH (07:47)
[2020-04-07] MEDS: Budesonide/Formoterol 160/4.5 1 PUFF INH IH SCH ×2 (10:49→21:10)
[2020-04-07] MEDS: levoFLOXacin 750 MG/150 ML 750 MG/150 ML BAG IVPB SCH (12:10)
[2020-04-07] MEDS: Cefepime HCl 2,000 MG in Water for inj. (sterile) 20 ML IVP SCH (12:11)
[2020-04-07] MEDS ORDERED: *HR* Propofol 200 MG/20 ML VIAL IVP ONE (13:50)
[2020-04-07] MEDS ORDERED: Lidocaine -MPF 2% 2 ML VIAL ONE (13:52)
[2020-04-07] MEDS ORDERED: Ondansetron 4 MG/2 ML VIAL ONE (13:52)
[2020-04-07] MEDS ORDERED: *HR* FentaNYL (PF) 100 MCG/2 ML VIAL ONE (14:20)
[2020-04-07] MEDS ORDERED: Dexamethasone 4 MG/ML VIAL ONE (14:21)
[2020-04-07] MEDS ORDERED: Lidocaine -MPF 4% 5 ML AMPUL ONE (14:25)
[2020-04-07] MEDS ORDERED: *HR* Midazolam HCl 2 MG/2 ML VIAL ONE (14:28)
[2020-04-07] MEDS ORDERED: *HR* PHENYLEPHRINE 1,000 MCG/10 ML SYRINGE IVP ONE (14:37)
[2020-04-07] MEDS ORDERED: Potassium Phosphate 44 MEQ in 0.9 % Sodium Chloride 250 ML IVPB ONE (15:01)
[2020-04-07] MEDS ORDERED: *HR* OxyCODONE Immed Rel 5 MG TABLET PO ONE (16:14)
[2020-04-07 17:00] LABS: Source of Body Fluid LLL BAL; Source of Body Fluid RLL BAL
[2020-04-07] MEDS: QUEtiapine Fumarate 100 MG TABLET PO SCH (21:31)
[2020-04-07] MEDS: Mirtazapine 15 MG TABLET PO SCH (21:31)
[2020-04-07] MEDS: Melatonin 3 MG TABLET PO SCH (21:31)
[2020-04-07 21:50] LABS: Appearance of Body Fluid Cloudy (Clear); Volume of Body Fluid 15 mL
[2020-04-07 21:52] LABS: Appearance of Body Fluid Clear (Clear); Volume of Body Fluid 11 mL
[2020-04-08] MEDS: Cefepime HCl 2,000 MG in Water for inj. (sterile) 20 ML IVP SCH ×2 (01:10→12:30)
[2020-04-08] MEDS: Albuterol 2.5 MG/3 ML NEBULIZER IH SCH ×4 (03:15→21:22)
[2020-04-08] MEDS: *HR* OxyCODONE Immed Rel 5 MG TABLET PO PRN ×3 (04:53→23:27)
[2020-04-08 05:25] LABS: Basophils % 0.1 %; Eosinophils % 0.4 %; Red Cell Distribution Width 18.3 % (11.5-14.5)
[2020-04-08 05:26] LABS: Hematocrit 34.3 % (35.3-44.9); Immature Granulocytes % 1.4 % (0-4); Immature Platelets 32.5 % (1.1-6.1); Lymphocytes # 0.3 K/mcL (0.6-4.6); Lymphocytes % 3.1 %; Mean Corpuscular HGB Conc 32.1 g/dL (31.6-35.5); Mean Corpuscular Hemoglobin 32.6 pg (28.0-33.3); Mean Corpuscular Volume 101.8 fL (83.0-100.0); Monocytes # 0.5 K/mcL (0.0-1.3); Neutrophils # 9.6 K/mcL (1.6-8.9); Red Blood Count 3.37 M/mcL (3.82-4.97); White Blood Count 10.7 K/mcL (4.3-11.1)
[2020-04-08 05:31] LABS: Platelet Count 30 K/mcL (140-400)
[2020-04-08 05:35] LABS: BUN/Creatinine Ratio 16 (6-26); Blood Urea Nitrogen 7 mg/dL (6-20); Calcium 7.7 mg/dL (8.6-10.3); Carbon Dioxide 28 mEq/L (23-29); Chloride 104 mEq/L (98-107); Glucose 185 mg/dL (70-105); Magnesium 1.5 mg/dL (1.6-2.6); Osmolality,Calculated 291 (280-300); Phosphorous 2.7 mg/dL (2.7-4.5); Potassium 3.5 mEq/L (3.5-5.1); Sodium 139 mEq/L (136-145); eGFR For African Americans > 60 (> 60); eGFR For Non-African Americans > 60 (> 60)
[2020-04-08] MEDS: levETIRAcetam 250 MG TABLET PO SCH ×2 (05:42→17:54)
[2020-04-08] MEDS: *HR* OxyCODONE Immed Rel 15 MG TABLET PO PRN ×2 (09:01→17:54)
[2020-04-08] MEDS: Folic Acid 1 MG TABLET PO SCH (09:02)
[2020-04-08] MEDS: Thiamine (B-1) 100 MG TABLET PO SCH (09:02)
[2020-04-08] MEDS: Cyanocobalamin (B-12) 1,000 MCG TABLET PO SCH (09:02)
[2020-04-08] MEDS: predniSONE 20 MG TABLET PO SCH (09:02)
[2020-04-08] MEDS: risperiDONE 1 MG TABLET PO SCH (09:02)
[2020-04-08] MEDS: Nicotine 7 MG PATCH.TD24 TD SCH (09:02)
[2020-04-08] MEDS: levoFLOXacin 750 MG/150 ML 750 MG/150 ML BAG IVPB SCH (09:03)
[2020-04-08] MEDS: Insulin LISPRO 300 UNITS/3 ML VIAL SQ SCH ×4 (09:20→21:17)
[2020-04-08] MEDS: Budesonide/Formoterol 160/4.5 1 PUFF INH IH SCH ×2 (10:22→21:22)
[2020-04-08] MEDS: Magic Mouthwash 10 ML UD Cup PO SCH ×2 (15:21→21:03)
[2020-04-08] MEDS: Sucralfate 1 GM TABLET PO SCH ×2 (17:54→21:02)
[2020-04-08] MEDS: Melatonin 3 MG TABLET PO SCH (21:02)
[2020-04-08] MEDS: QUEtiapine Fumarate 100 MG TABLET PO SCH (21:02)
[2020-04-08] MEDS: Mirtazapine 15 MG TABLET PO SCH (21:02)
[2020-04-09] MEDS: Magic Mouthwash 10 ML UD Cup PO SCH ×4 (02:01→19:48)
[2020-04-09] MEDS: Albuterol 2.5 MG/3 ML NEBULIZER IH SCH ×4 (03:30→21:45)
[2020-04-09 03:34] LABS: Eosinophils % 0.3 %
[2020-04-09 03:36] LABS: Basophils % 0.2 %; Hematocrit 31.8 % (35.3-44.9); Immature Granulocytes % 1.3 % (0-4); Immature Platelets 33.5 % (1.1-6.1); Lymphocytes # 0.3 K/mcL (0.6-4.6); Lymphocytes % 2.5 %; Mean Corpuscular HGB Conc 31.4 g/dL (31.6-35.5); Monocytes # 0.6 K/mcL (0.0-1.3); Monocytes % 5.2 %; Neutrophils # 10.5 K/mcL (1.6-8.9); Red Blood Count 3.03 M/mcL (3.82-4.97); Red Cell Distribution Width 17.6 % (11.5-14.5); Segmented Neutrophils % 90.5 %; White Blood Count 11.6 K/mcL (4.3-11.1)
[2020-04-09 03:45] LABS: Platelet Count 30 K/mcL (140-400)
[2020-04-09] MEDS: *HR* OxyCODONE Immed Rel 15 MG TABLET PO PRN ×3 (03:53→19:55)
[2020-04-09 03:56] LABS: BUN/Creatinine Ratio 19 (6-26); Blood Urea Nitrogen 6 mg/dL (6-20); Calcium 7.6 mg/dL (8.6-10.3); Carbon Dioxide 28 mEq/L (23-29); Chloride 105 mEq/L (98-107); Glucose 103 mg/dL (70-105); Magnesium 1.6 mg/dL (1.6-2.6); Osmolality,Calculated 286 (280-300); Phosphorous 2.2 mg/dL (2.7-4.5); Potassium 3.7 mEq/L (3.5-5.1); Sodium 139 mEq/L (136-145); eGFR For African Americans > 60 (> 60); eGFR For Non-African Americans > 60 (> 60)
[2020-04-09] MEDS: levETIRAcetam 250 MG TABLET PO SCH ×2 (05:23→18:09)
[2020-04-09] MEDS: Calcium Gluconate 1gm/50mL 1 GM/50 ML BAG IVPB SCH ×2 (05:25→06:13)
[2020-04-09] MEDS: Folic Acid 1 MG TABLET PO SCH (08:27)
[2020-04-09] MEDS: risperiDONE 1 MG TABLET PO SCH (08:27)
[2020-04-09] MEDS: Thiamine (B-1) 100 MG TABLET PO SCH (08:28)
[2020-04-09] MEDS: Sucralfate 1 GM TABLET PO SCH ×4 (08:28→23:38)
[2020-04-09] MEDS: predniSONE 20 MG TABLET PO SCH (08:28)
[2020-04-09] MEDS: Cyanocobalamin (B-12) 1,000 MCG TABLET PO SCH (08:28)
[2020-04-09] MEDS: Nicotine 7 MG PATCH.TD24 TD SCH (08:29)
[2020-04-09] MEDS: Loratadine 10 MG TABLET PO SCH (08:29)
[2020-04-09] MEDS: Insulin LISPRO 300 UNITS/3 ML VIAL SQ SCH ×4 (08:32→20:17)
[2020-04-09] MEDS: *HR* OxyCODONE Immed Rel 5 MG TABLET PO PRN ×3 (08:37→23:45)
[2020-04-09] MEDS: Budesonide/Formoterol 160/4.5 1 PUFF INH IH SCH ×2 (09:11→21:45)
[2020-04-09] MEDS: Melatonin 3 MG TABLET PO SCH (19:47)
[2020-04-09] MEDS: Mirtazapine 15 MG TABLET PO SCH (19:48)
[2020-04-09] MEDS: QUEtiapine Fumarate 100 MG TABLET PO SCH (19:48)
[2020-04-10] MEDS: Magic Mouthwash 10 ML UD Cup PO SCH ×4 (01:41→20:34)
[2020-04-10 03:34] LABS: Basophils % 0.1 %; Mean Corpuscular HGB Conc 31.2 g/dL (31.6-35.5); Mean Corpuscular Hemoglobin 32.7 pg (28.0-33.3); Red Cell Distribution Width 17.6 % (11.5-14.5)
[2020-04-10 03:36] LABS: Eosinophils # 0.1 K/mcL (0.0-0.6); Eosinophils % 0.5 %; Hematocrit 31.7 % (35.3-44.9); Hemoglobin 9.9 g/dL (11.5-15.4); Immature Granulocytes % 0.8 % (0-4); Immature Platelets 27.6 % (1.1-6.1); Lymphocytes # 0.3 K/mcL (0.6-4.6); Lymphocytes % 2.4 %; Mean Corpuscular Volume 104.6 fL (83.0-100.0); Monocytes # 0.6 K/mcL (0.0-1.3); Monocytes % 5.4 %; Neutrophils # 10.1 K/mcL (1.6-8.9); Red Blood Count 3.03 M/mcL (3.82-4.97); Segmented Neutrophils % 90.8 %; White Blood Count 11.1 K/mcL (4.3-11.1)
[2020-04-10 03:41] LABS: Platelet Count 38 K/mcL (140-400)
[2020-04-10] MEDS: Albuterol 2.5 MG/3 ML NEBULIZER IH SCH ×4 (03:55→22:40)
[2020-04-10 04:08] LABS: BUN/Creatinine Ratio 19 (6-26); Blood Urea Nitrogen 6 mg/dL (6-20); Calcium 7.7 mg/dL (8.6-10.3); Carbon Dioxide 27 mEq/L (23-29); Chloride 106 mEq/L (98-107); Glucose 155 mg/dL (70-105); Magnesium 1.9 mg/dL (1.6-2.6); Osmolality,Calculated 289 (280-300); Phosphorous 2.9 mg/dL (2.7-4.5); Potassium 3.8 mEq/L (3.5-5.1); Sodium 139 mEq/L (136-145); eGFR For African Americans > 60 (> 60); eGFR For Non-African Americans > 60 (> 60)
[2020-04-10] MEDS: levETIRAcetam 250 MG TABLET PO SCH ×2 (05:01→16:50)
[2020-04-10] MEDS: *HR* OxyCODONE Immed Rel 15 MG TABLET PO PRN ×3 (05:04→20:33)
[2020-04-10] MEDS: Thiamine (B-1) 100 MG TABLET PO SCH (08:50)
[2020-04-10] MEDS: Sucralfate 1 GM TABLET PO SCH ×4 (08:50→20:33)
[2020-04-10] MEDS: Loratadine 10 MG TABLET PO SCH (08:50)
[2020-04-10] MEDS: Cyanocobalamin (B-12) 1,000 MCG TABLET PO SCH (08:51)
[2020-04-10] MEDS: Folic Acid 1 MG TABLET PO SCH (08:51)
[2020-04-10] MEDS: risperiDONE 1 MG TABLET PO SCH (08:51)
[2020-04-10] MEDS: predniSONE 20 MG TABLET PO SCH (08:52)
[2020-04-10] MEDS: *HR* OxyCODONE Immed Rel 5 MG TABLET PO PRN ×2 (08:53→16:50)
[2020-04-10] MEDS: Budesonide/Formoterol 160/4.5 1 PUFF INH IH SCH ×2 (08:54→22:40)
[2020-04-10] MEDS: Insulin LISPRO 300 UNITS/3 ML VIAL SQ SCH ×4 (09:08→21:20)
[2020-04-10] MEDS: Nicotine 7 MG PATCH.TD24 TD SCH (09:08)
[2020-04-10] MEDS: Fluconazole 100 MG TABLET PO SCH (12:54)
[2020-04-10] MEDS: Mirtazapine 15 MG TABLET PO SCH (20:33)
[2020-04-10] MEDS: Melatonin 3 MG TABLET PO SCH (20:33)
[2020-04-10] MEDS: QUEtiapine Fumarate 100 MG TABLET PO SCH (20:34)
[2020-04-11 02:14] LABS: Eosinophils % 0.2 %; Hemoglobin 10.8 g/dL (11.5-15.4); Mean Corpuscular Hemoglobin 33.5 pg (28.0-33.3); Red Blood Count 3.22 M/mcL (3.82-4.97); Segmented Neutrophils % 90.6 %
[2020-04-11 02:16] LABS: Basophils % 0.2 %; Hematocrit 34.4 % (35.3-44.9); Immature Granulocytes % 0.7 % (0-4); Immature Platelets 21.8 % (1.1-6.1); Lymphocytes # 0.2 K/mcL (0.6-4.6); Mean Corpuscular HGB Conc 31.4 g/dL (31.6-35.5); Mean Corpuscular Volume 106.8 fL (83.0-100.0); Monocytes # 0.6 K/mcL (0.0-1.3); Monocytes % 6.3 %; Neutrophils # 8.8 K/mcL (1.6-8.9); Red Cell Distribution Width 17.2 % (11.5-14.5); White Blood Count 9.7 K/mcL (4.3-11.1)
[2020-04-11 02:20] LABS: Platelet Count 55 K/mcL (140-400)
[2020-04-11] MEDS: Magic Mouthwash 10 ML UD Cup PO SCH ×3 (02:40→14:53)
[2020-04-11] MEDS: *HR* OxyCODONE Immed Rel 5 MG TABLET PO PRN ×2 (02:40→08:50)
[2020-04-11 02:43] LABS: BUN/Creatinine Ratio 18 (6-26); Blood Urea Nitrogen 7 mg/dL (6-20); Calcium 7.7 mg/dL (8.6-10.3); Carbon Dioxide 29 mEq/L (23-29); Chloride 104 mEq/L (98-107); Glucose 214 mg/dL (70-105); Magnesium 1.5 mg/dL (1.6-2.6); Osmolality,Calculated 292 (280-300); Phosphorous 2.8 mg/dL (2.7-4.5); Potassium 3.7 mEq/L (3.5-5.1); Sodium 139 mEq/L (136-145); eGFR For African Americans > 60 (> 60); eGFR For Non-African Americans > 60 (> 60)
[2020-04-11 02:53] LABS: Platelet Estimate Decreased (Normal)
[2020-04-11] MEDS: Albuterol 2.5 MG/3 ML NEBULIZER IH SCH ×3 (04:47→15:38)
[2020-04-11] MEDS ORDERED: Magnesium Oxide 400 MG TABLET PO ONE (04:51)
[2020-04-11] MEDS: levETIRAcetam 250 MG TABLET PO SCH (05:14)
[2020-04-11] MEDS ORDERED: Potassium Phosphate 44 MEQ in 0.9 % Sodium Chloride 250 ML IVPB ONE (07:03)
[2020-04-11] MEDS: Fluconazole 100 MG TABLET PO SCH (08:50)
[2020-04-11] MEDS: Cyanocobalamin (B-12) 1,000 MCG TABLET PO SCH (08:50)
[2020-04-11] MEDS: Folic Acid 1 MG TABLET PO SCH (08:50)
[2020-04-11] MEDS: predniSONE 20 MG TABLET PO SCH (08:50)
[2020-04-11] MEDS: Sucralfate 1 GM TABLET PO SCH ×2 (08:51→11:48)
[2020-04-11] MEDS: Loratadine 10 MG TABLET PO SCH (08:51)
[2020-04-11] MEDS: Thiamine (B-1) 100 MG TABLET PO SCH (08:51)
[2020-04-11] MEDS: risperiDONE 1 MG TABLET PO SCH (08:51)
[2020-04-11] MEDS: Insulin LISPRO 300 UNITS/3 ML VIAL SQ SCH ×2 (08:52→11:48)
[2020-04-11] MEDS: Nicotine 7 MG PATCH.TD24 TD SCH (08:52)
[2020-04-11] MEDS ORDERED: Magnesium Oxide 400 MG TABLET PO SCH (09:15)
[2020-04-11] MEDS: Budesonide/Formoterol 160/4.5 1 PUFF INH IH SCH (09:59)
[2020-04-11 11:33] VITALS: BP 101/67
== END 2020-04-11 16:14 | disposition home or self-care (01) | DRG 720 ==
LOC: 2NNU → ICNU 23:40 → SUATTDRO 23:41 → 2NNU 04-04 18:29 → 2ANU 04-07 08:36
PROVIDERS: ADMIT Internal Medicine; ATTEND Internal Medicine
PROC: ENDOBRF (2020-04-07 14:20)

== ENCOUNTER 2020-04-15 07:49 | Inpatient (IN) ==
[2020-04-15] MEDS ORDERED: Naloxone 0.4 MG/ML INJ IVP PRN (09:38)
[2020-04-15] MEDS ORDERED: *HR* HYDROcodone/Acet 5/325 mg TABLET PO PRN (09:38)
[2020-04-15] MEDS ORDERED: Piperacillin/Tazobactam 3.375 GM in 0.9 % Sodium Chloride Mini Bag 100 ML IVPB SCH (09:44)
[2020-04-15] MEDS ORDERED: D5% in Water 1,000 ML IVC PRN (09:45)
[2020-04-15] MEDS ORDERED: *HR* Dextrose 50 % in Water (Vial) 50 ML VIAL IVP PRN (09:45)
[2020-04-15] MEDS ORDERED: Dextrose Gel 15 GM/37.5 ML TUBE PO PRN ×2 (09:45)
[2020-04-15] MEDS ORDERED: *HR* OxyCODONE Immed Rel 15 MG TABLET PO PRN (09:47)
[2020-04-15 10:18] LABS: Eosinophils # 0.1 K/mcL (0.0-0.6); Eosinophils % 2.4 %; Hemoglobin 9.7 g/dL (11.5-15.4); Immature Granulocytes % 0.3 % (0-4); Immature Platelets 16.1 % (1.1-6.1); Lymphocytes # 0.3 K/mcL (0.6-4.6); Lymphocytes % 5.2 %; Mean Corpuscular HGB Conc 31.3 g/dL (31.6-35.5); Mean Corpuscular Hemoglobin 32.6 pg (28.0-33.3); Mean Platelet Volume 12.7 fL (9.4-12.4); Monocytes # 0.4 K/mcL (0.0-1.3); Monocytes % 6.6 %; Neutrophils # 4.9 K/mcL (1.6-8.9); Platelet Count 87 K/mcL (140-400); Red Blood Count 2.98 M/mcL (3.82-4.97); Red Cell Distribution Width 17.1 % (11.5-14.5); Segmented Neutrophils % 85.5 %; White Blood Count 5.7 K/mcL (4.3-11.1)
[2020-04-15] MEDS: Sucralfate 1 GM TABLET PO SCH ×3 (10:21→20:35)
[2020-04-15] MEDS: Saline Nasal Spray 44 ML BOTTLE NS SCH ×2 (10:22→20:35)
[2020-04-15 10:23] LABS: INR 1.3; Prothrombin Time 14.4 Seconds (9.4-12.1)
[2020-04-15 10:26] LABS: Activated Partial Thrombo Time 31.2 Seconds (26.0-36.0)
[2020-04-15 10:36] LABS: Alanine Aminotransferase 27 Units/L (7-52); Albumin 2.6 g/dL (3.5-5.7); Albumin/Globulin Ratio 1.2 (1.1-2.2); Alkaline Phosphatase 142 Units/L (34-104); Aspartate Amino Transferase 45 Units/L (13-39); BUN/Creatinine Ratio 9 (6-26); Blood Urea Nitrogen 3 mg/dL (6-20); Calcium 6.9 mg/dL (8.6-10.3); Carbon Dioxide 28 mEq/L (23-29); Chloride 106 mEq/L (98-107); Globulin 2.2 g/dL (2.4-3.5); Glucose 105 mg/dL (70-105); Magnesium 0.9 mg/dL (1.6-2.6); Osmolality,Calculated 291 (280-300); Potassium 2.9 mEq/L (3.5-5.1); Sodium 142 mEq/L (136-145); Total Protein 4.8 g/dL (6.4-8.9); eGFR For African Americans > 60 (> 60); eGFR For Non-African Americans > 60 (> 60)
[2020-04-15] MEDS ORDERED: *HR* HYDROmorphone (PF) 1 MG/ML SYRINGE IVP ONE (10:38)
[2020-04-15] MEDS: Budesonide/Formoterol 160/4.5 1 PUFF INH IH SCH ×2 (11:05→21:06)
[2020-04-15] MEDS: Insulin LISPRO 300 UNITS/3 ML VIAL SQ SCH ×2 (11:23→15:35)
[2020-04-15] MEDS ORDERED: Magnesium Sulfate 1 GM/102 ML PIGGYBACK IVPB ONE (13:52)
[2020-04-15] MEDS: *HR* Heparin 5,000 UNIT/ML VIAL SQ SCH ×2 (14:14→20:36)
[2020-04-15] MEDS: Ondansetron 4 MG/2 ML VIAL IVP PRN ×2 (14:20→23:27)
[2020-04-15] MEDS ORDERED: *HR* FentaNYL PATCH 12 MCG PATCH TD SCH (14:45)
[2020-04-15] MEDS ORDERED: *HR* OxyCODONE Immed Rel 15 MG TABLET PO SCH (15:00)
[2020-04-15] MEDS: *HR* HYDROmorphone 20 MG/20 ML PCA IVC PRN (17:11)
[2020-04-15] MEDS: levETIRAcetam 250 MG TABLET PO SCH (17:13)
[2020-04-15] MEDS: 0.9 % Sodium Chloride 1,000 ML IVC SCH (17:13)
[2020-04-15] MEDS ORDERED: *HR* HYDROmorphone (PF) 1 MG/ML SYRINGE IVP PRN (17:37)
[2020-04-15] MEDS: QUEtiapine Fumarate 100 MG TABLET PO SCH (20:35)
[2020-04-15] MEDS: Melatonin 3 MG TABLET PO SCH (20:35)
[2020-04-15] MEDS: Magnesium Oxide 400 MG TABLET PO SCH (20:35)
[2020-04-15] MEDS: Mirtazapine 15 MG TABLET PO SCH (20:35)
[2020-04-15] MEDS ORDERED: LUBIPROSTONE 8 MCG PO SCH (21:00)
[2020-04-15 21:02] LABS: Bilirubin,Urine Negative (Negative); Blood,Urine Negative (Negative); Clarity,Urine Clear (Clear); Color,Urine Light-Yellow (Yellow); Glucose,Urine (UA) Normal (Normal); Ketones,Urine Trace mg/dL (Negative); Leukocyte Esterase,Urine Trace (Negative); Mucus,Urine Few per lpf (None-Few); Nitrite,Urine Negative (Negative); Protein,Urine Negative (Neg-Trace); RBC,Urine 0-3 per hpf (0-3); Specific Gravity,Urine 1.014 (1.010-1.025); Squamous Epithelial Cell,Urine Few per hpf (None-Few); Urobilinogen,Urine Normal (Normal); WBC,Urine 0-3 per hpf (0-3)
[2020-04-16] MEDS ORDERED: 0.9 % Sodium Chloride 500 ML IVC ONE (00:48)
[2020-04-16] MEDS: levETIRAcetam 250 MG TABLET PO SCH ×2 (05:35→17:42)
[2020-04-16] MEDS: *HR* Heparin 5,000 UNIT/ML VIAL SQ SCH ×3 (05:35→21:29)
[2020-04-16] MEDS: 0.9 % Sodium Chloride 1,000 ML IVC SCH (05:39)
[2020-04-16] MEDS: Budesonide/Formoterol 160/4.5 1 PUFF INH IH SCH ×2 (07:26→20:28)
[2020-04-16] MEDS: Magnesium Oxide 400 MG TABLET PO SCH ×2 (09:56→21:24)
[2020-04-16] MEDS: Fluconazole 100 MG TABLET PO SCH (09:56)
[2020-04-16] MEDS: Folic Acid 1 MG TABLET PO SCH (09:56)
[2020-04-16] MEDS: risperiDONE 1 MG TABLET PO SCH (09:56)
[2020-04-16] MEDS: Sucralfate 1 GM TABLET PO SCH ×4 (09:56→21:24)
[2020-04-16] MEDS: Insulin LISPRO 300 UNITS/3 ML VIAL SQ SCH ×3 (09:56→17:42)
[2020-04-16] MEDS: Cyanocobalamin (B-12) 1,000 MCG TABLET PO SCH (09:56)
[2020-04-16] MEDS: Saline Nasal Spray 44 ML BOTTLE NS SCH ×2 (09:57→21:30)
[2020-04-16 10:30] LABS: Segmented Neutrophils % 79.8 %
[2020-04-16 10:32] LABS: Basophils % 0.2 %; Eosinophils # 0.2 K/mcL (0.0-0.6); Eosinophils % 3.4 %; Hematocrit 31.1 % (35.3-44.9); Hemoglobin 9.6 g/dL (11.5-15.4); Immature Granulocytes % 0.4 % (0-4); Immature Platelets 17.6 % (1.1-6.1); Lymphocytes # 0.4 K/mcL (0.6-4.6); Lymphocytes % 8.3 %; Mean Corpuscular HGB Conc 30.9 g/dL (31.6-35.5); Mean Corpuscular Hemoglobin 32.7 pg (28.0-33.3); Mean Corpuscular Volume 105.8 fL (83.0-100.0); Monocytes # 0.4 K/mcL (0.0-1.3); Monocytes % 7.9 %; Neutrophils # 3.8 K/mcL (1.6-8.9); Platelet Count 89 K/mcL (140-400); Red Blood Count 2.94 M/mcL (3.82-4.97); Red Cell Distribution Width 17.3 % (11.5-14.5); White Blood Count 4.7 K/mcL (4.3-11.1)
[2020-04-16 17:01] LABS: BUN/Creatinine Ratio 10 (6-26); Blood Urea Nitrogen 3 mg/dL (6-20); Calcium 6.8 mg/dL (8.6-10.3); Carbon Dioxide 28 mEq/L (23-29); Chloride 108 mEq/L (98-107); Glucose 116 mg/dL (70-105); Osmolality,Calculated 292 (280-300); Potassium 3.7 mEq/L (3.5-5.1); Sodium 142 mEq/L (136-145); eGFR For African Americans > 60 (> 60); eGFR For Non-African Americans > 60 (> 60)
[2020-04-16] MEDS: Mirtazapine 15 MG TABLET PO SCH (21:29)
[2020-04-16] MEDS: Melatonin 3 MG TABLET PO SCH (21:29)
[2020-04-16] MEDS: QUEtiapine Fumarate 100 MG TABLET PO SCH (21:34)
[2020-04-17] MEDS: *HR* Heparin 5,000 UNIT/ML VIAL SQ SCH ×3 (05:32→21:08)
[2020-04-17] MEDS: levETIRAcetam 250 MG TABLET PO SCH ×2 (05:32→17:26)
[2020-04-17 05:39] LABS: BUN/Creatinine Ratio 6 (6-26); Blood Urea Nitrogen 2 mg/dL (6-20); Calcium 7.2 mg/dL (8.6-10.3); Carbon Dioxide 27 mEq/L (23-29); Chloride 110 mEq/L (98-107); Glucose 114 mg/dL (70-105); Osmolality,Calculated 293 (280-300); Potassium 3.4 mEq/L (3.5-5.1); Sodium 143 mEq/L (136-145); eGFR For African Americans > 60 (> 60); eGFR For Non-African Americans > 60 (> 60)
[2020-04-17] MEDS: Budesonide/Formoterol 160/4.5 1 PUFF INH IH SCH ×2 (07:34→21:28)
[2020-04-17] MEDS: Folic Acid 1 MG TABLET PO SCH (09:06)
[2020-04-17] MEDS: Magnesium Oxide 400 MG TABLET PO SCH ×2 (09:06→21:08)
[2020-04-17] MEDS: risperiDONE 1 MG TABLET PO SCH (09:06)
[2020-04-17] MEDS: Fluconazole 100 MG TABLET PO SCH (09:06)
[2020-04-17] MEDS: Sucralfate 1 GM TABLET PO SCH ×4 (09:06→21:07)
[2020-04-17] MEDS: Insulin LISPRO 300 UNITS/3 ML VIAL SQ SCH ×3 (09:08→17:27)
[2020-04-17] MEDS: Saline Nasal Spray 44 ML BOTTLE NS SCH ×2 (09:08→21:08)
[2020-04-17] MEDS: Cyanocobalamin (B-12) 1,000 MCG TABLET PO SCH (09:12)
[2020-04-17] MEDS: *HR* HYDROmorphone 20 MG/20 ML PCA IVC PRN (09:46)
[2020-04-17] MEDS: 0.9 % Sodium Chloride 1,000 ML IVC SCH (17:26)
[2020-04-17] MEDS: QUEtiapine Fumarate 100 MG TABLET PO SCH (21:07)
[2020-04-17] MEDS: Melatonin 3 MG TABLET PO SCH (21:07)
[2020-04-17] MEDS: Mirtazapine 15 MG TABLET PO SCH (21:07)
[2020-04-18] MEDS: levETIRAcetam 250 MG TABLET PO SCH ×2 (06:25→17:50)
[2020-04-18] MEDS: *HR* Heparin 5,000 UNIT/ML VIAL SQ SCH ×3 (06:26→19:45)
[2020-04-18] MEDS ORDERED: 0.9 % Sodium Chloride 500 ML IVC ONE (07:56)
[2020-04-18] MEDS: Budesonide/Formoterol 160/4.5 1 PUFF INH IH SCH ×2 (08:12→19:56)
[2020-04-18] MEDS: Sucralfate 1 GM TABLET PO SCH ×4 (08:14→19:45)
[2020-04-18] MEDS: Fluconazole 100 MG TABLET PO SCH (08:14)
[2020-04-18] MEDS: risperiDONE 1 MG TABLET PO SCH (08:14)
[2020-04-18] MEDS: Cyanocobalamin (B-12) 1,000 MCG TABLET PO SCH (08:14)
[2020-04-18] MEDS: Insulin LISPRO 300 UNITS/3 ML VIAL SQ SCH ×3 (08:15→16:56)
[2020-04-18] MEDS: Magnesium Oxide 400 MG TABLET PO SCH ×2 (08:15→19:44)
[2020-04-18] MEDS: Folic Acid 1 MG TABLET PO SCH (08:15)
[2020-04-18] MEDS: Saline Nasal Spray 44 ML BOTTLE NS SCH ×2 (13:16→20:03)
[2020-04-18] MEDS: Melatonin 3 MG TABLET PO SCH (19:45)
[2020-04-18] MEDS: QUEtiapine Fumarate 100 MG TABLET PO SCH (19:45)
[2020-04-18] MEDS: Mirtazapine 15 MG TABLET PO SCH (19:45)
[2020-04-19 04:25] LABS: BUN/Creatinine Ratio 4 (6-26); Blood Urea Nitrogen 2 mg/dL (6-20); Calcium 7.8 mg/dL (8.6-10.3); Carbon Dioxide 22 mEq/L (23-29); Chloride 110 mEq/L (98-107); Glucose 113 mg/dL (70-105); Osmolality,Calculated 295 (280-300); Potassium 3.2 mEq/L (3.5-5.1); Sodium 144 mEq/L (136-145); eGFR For African Americans > 60 (> 60); eGFR For Non-African Americans > 60 (> 60)
[2020-04-19] MEDS: *HR* Heparin 5,000 UNIT/ML VIAL SQ SCH ×3 (05:34→19:50)
[2020-04-19] MEDS: levETIRAcetam 250 MG TABLET PO SCH ×2 (05:34→17:07)
[2020-04-19] MEDS ORDERED: Acetaminophen 325 MG TABLET PO ONE (05:42)
[2020-04-19] MEDS: Insulin LISPRO 300 UNITS/3 ML VIAL SQ SCH ×3 (07:26→17:07)
[2020-04-19] MEDS: Cyanocobalamin (B-12) 1,000 MCG TABLET PO SCH (07:50)
[2020-04-19] MEDS: Sucralfate 1 GM TABLET PO SCH ×4 (07:50→19:50)
[2020-04-19] MEDS: Fluconazole 100 MG TABLET PO SCH (07:50)
[2020-04-19] MEDS: Magnesium Oxide 400 MG TABLET PO SCH ×2 (07:51→19:50)
[2020-04-19] MEDS: risperiDONE 1 MG TABLET PO SCH (07:51)
[2020-04-19] MEDS: 0.9 % Sodium Chloride 1,000 ML IVC SCH (07:51)
[2020-04-19] MEDS: Folic Acid 1 MG TABLET PO SCH (07:55)
[2020-04-19] MEDS: Budesonide/Formoterol 160/4.5 1 PUFF INH IH SCH ×2 (08:09→21:11)
[2020-04-19] MEDS: Saline Nasal Spray 44 ML BOTTLE NS SCH ×2 (11:17→19:54)
[2020-04-19] MEDS: Ondansetron 4 MG/2 ML VIAL IVP PRN (17:03)
[2020-04-19] MEDS: Mirtazapine 15 MG TABLET PO SCH (19:50)
[2020-04-19] MEDS: QUEtiapine Fumarate 100 MG TABLET PO SCH (19:50)
[2020-04-19] MEDS: Melatonin 3 MG TABLET PO SCH (19:50)
[2020-04-19] MEDS ORDERED: 0.9 % Sodium Chloride 500 ML IVC ONE (21:54)
[2020-04-19 22:57] LABS: Magnesium 1.2 mg/dL (1.6-2.6); Potassium 3.8 mEq/L (3.5-5.1)
[2020-04-20] MEDS: 0.9 % Sodium Chloride 1,000 ML IVC SCH ×2 (02:23→23:41)
[2020-04-20] MEDS: *HR* Heparin 5,000 UNIT/ML VIAL SQ SCH ×3 (05:38→20:21)
[2020-04-20] MEDS: levETIRAcetam 250 MG TABLET PO SCH ×2 (05:38→16:32)
[2020-04-20] MEDS: Budesonide/Formoterol 160/4.5 1 PUFF INH IH SCH ×2 (07:46→20:02)
[2020-04-20] MEDS: Sucralfate 1 GM TABLET PO SCH ×4 (09:39→20:20)
[2020-04-20] MEDS: Fluconazole 100 MG TABLET PO SCH (09:39)
[2020-04-20] MEDS: Magnesium Oxide 400 MG TABLET PO SCH ×2 (09:39→20:21)
[2020-04-20] MEDS: risperiDONE 1 MG TABLET PO SCH (09:40)
[2020-04-20] MEDS: Insulin LISPRO 300 UNITS/3 ML VIAL SQ SCH ×3 (09:40→16:33)
[2020-04-20] MEDS: Folic Acid 1 MG TABLET PO SCH (09:40)
[2020-04-20] MEDS: Cyanocobalamin (B-12) 1,000 MCG TABLET PO SCH (09:40)
[2020-04-20] MEDS: Saline Nasal Spray 44 ML BOTTLE NS SCH ×2 (09:52→23:04)
[2020-04-20 10:04] LABS: SARS-CoV-2 by NAA Not Detected (Not Detect)
[2020-04-20] MEDS: Ondansetron 4 MG/2 ML VIAL IVP PRN (18:03)
[2020-04-20] MEDS: QUEtiapine Fumarate 100 MG TABLET PO SCH (20:20)
[2020-04-20] MEDS: Mirtazapine 15 MG TABLET PO SCH (20:21)
[2020-04-20] MEDS: Melatonin 3 MG TABLET PO SCH (20:21)
[2020-04-20] MEDS ORDERED: 0.9 % Sodium Chloride 250 ML IVC ONE ×2 (23:00→23:29)
[2020-04-21 03:15] LABS: Immature Granulocytes % 0.9 % (0-4)
[2020-04-21 03:17] LABS: Basophils % 0.2 %; Eosinophils # 0.2 K/mcL (0.0-0.6); Eosinophils % 3.6 %; Hematocrit 31.8 % (35.3-44.9); Hemoglobin 10.1 g/dL (11.5-15.4); Immature Platelets 19.7 % (1.1-6.1); Lymphocytes # 0.3 K/mcL (0.6-4.6); Lymphocytes % 5.3 %; Mean Corpuscular HGB Conc 31.8 g/dL (31.6-35.5); Mean Corpuscular Hemoglobin 33.3 pg (28.0-33.3); Mean Platelet Volume 13.9 fL (9.4-12.4); Monocytes # 0.6 K/mcL (0.0-1.3); Monocytes % 10.8 %; Neutrophils # 4.6 K/mcL (1.6-8.9); Platelet Count 60 K/mcL (140-400); Red Blood Count 3.03 M/mcL (3.82-4.97); Red Cell Distribution Width 17.8 % (11.5-14.5); Segmented Neutrophils % 79.2 %; White Blood Count 5.8 K/mcL (4.3-11.1)
[2020-04-21 03:22] LABS: Magnesium 1.6 mg/dL (1.6-2.6); Potassium 4.3 mEq/L (3.5-5.1)
[2020-04-21] MEDS ORDERED: Magnesium Sulfate 1 GM/102 ML PIGGYBACK IVPB ONE (03:26)
[2020-04-21] MEDS: levETIRAcetam 250 MG TABLET PO SCH ×2 (04:42→17:46)
[2020-04-21] MEDS: *HR* Heparin 5,000 UNIT/ML VIAL SQ SCH ×3 (04:45→21:57)
[2020-04-21] MEDS: 0.9 % Sodium Chloride 1,000 ML IVC SCH ×4 (05:49→20:04)
[2020-04-21] MEDS: Budesonide/Formoterol 160/4.5 1 PUFF INH IH SCH ×2 (07:58→19:34)
[2020-04-21] MEDS: Fluconazole 100 MG TABLET PO SCH (09:07)
[2020-04-21] MEDS: Folic Acid 1 MG TABLET PO SCH (09:07)
[2020-04-21] MEDS: Sucralfate 1 GM TABLET PO SCH ×4 (09:07→21:57)
[2020-04-21] MEDS: Ondansetron 4 MG/2 ML VIAL IVP PRN (09:07)
[2020-04-21] MEDS: risperiDONE 1 MG TABLET PO SCH (09:07)
[2020-04-21] MEDS: Magnesium Oxide 400 MG TABLET PO SCH ×2 (09:07→20:04)
[2020-04-21] MEDS: Cyanocobalamin (B-12) 1,000 MCG TABLET PO SCH (09:08)
[2020-04-21] MEDS: Insulin LISPRO 300 UNITS/3 ML VIAL SQ SCH ×3 (09:08→17:47)
[2020-04-21] MEDS: Saline Nasal Spray 44 ML BOTTLE NS SCH ×2 (09:13→21:58)
[2020-04-21] MEDS: Mirtazapine 15 MG TABLET PO SCH (20:03)
[2020-04-21] MEDS: Melatonin 3 MG TABLET PO SCH (20:03)
[2020-04-21] MEDS: QUEtiapine Fumarate 100 MG TABLET PO SCH (20:03)
[2020-04-22] MEDS: levETIRAcetam 250 MG TABLET PO SCH (04:59)
[2020-04-22] MEDS: *HR* Heparin 5,000 UNIT/ML VIAL SQ SCH (04:59)
[2020-04-22] MEDS: Budesonide/Formoterol 160/4.5 1 PUFF INH IH SCH (07:45)
[2020-04-22] MEDS: Magnesium Oxide 400 MG TABLET PO SCH (07:57)
[2020-04-22] MEDS: Folic Acid 1 MG TABLET PO SCH (07:57)
[2020-04-22] MEDS: Fluconazole 100 MG TABLET PO SCH (07:57)
[2020-04-22] MEDS: Sucralfate 1 GM TABLET PO SCH ×2 (07:57→12:04)
[2020-04-22] MEDS: Cyanocobalamin (B-12) 1,000 MCG TABLET PO SCH (07:57)
[2020-04-22] MEDS: Insulin LISPRO 300 UNITS/3 ML VIAL SQ SCH ×2 (07:58→12:31)
[2020-04-22] MEDS: risperiDONE 1 MG TABLET PO SCH (07:58)
[2020-04-22] MEDS: Ondansetron 4 MG/2 ML VIAL IVP PRN (08:07)
[2020-04-22] MEDS: Saline Nasal Spray 44 ML BOTTLE NS SCH (12:05)
[2020-04-22 12:18] VITALS: BP 99/64
== END 2020-04-22 15:52 ==
LOC: 2ANU → SUATTDRO 07:49
PROVIDERS: ADMIT Family Medicine; ATTEND Internal Medicine